=== PATIENT | male | born 1960 | race Caucasian/White ===

== ENCOUNTER 2020-09-09 13:42 | Outpatient (CLI) | payer OTHER, SELFPAY ==
[2020-09-09 14:26] LABS: Amphetamine Screen Urine Negative (Negative); Barbiturate Screen Urine Negative (Negative); Benzodiazepines Screen Urine Positive (Negative); Cannabinoid Screen Urine Negative (Negative); Cocaine Screen Urine Negative (Negative); Methadone Screen Urine Negative (Negative); Opiate Screen Urine Negative (Negative); Phencyclidine Screen Urine Negative (Negative)
== END 2020-09-09 13:43 | disposition home or self-care (01) ==
LOC: ANHLAB 13:42
PROVIDERS: PCP Internal Medicine; Visit Provider Nurse Practitioner
DX: C61 Malignant neoplasm of prostate (principal); Z13.29 Encounter for screening for other suspected endocrine disorder; Z13.220 Encounter for screening for lipoid disorders; Z51.81 Encounter for therapeutic drug level monitoring; Z79.899 Other long term (current) drug therapy
CPT/HCPCS: 80307

== ENCOUNTER 2020-11-03 08:55 | Outpatient (CLI) | payer OTHER, SELFPAY ==
--- NOTE | ~2020-11-03 | XR_ITS ---
XR lumbar spine 2-3V DATE: 11/03/2020 09:11 INDICATION: Lumbar radiculopathy TECHNIQUE: AP, lateral, coned lateral lumbosacral views COMPARISON: None FINDINGS: There is mild degenerative disease at L1-2 and L2-3, L4-5 and L5-S1. There is moderate degenerative disc disease at L3-4 with grade 1 anterolisthesis at this level due to degenerative change at the apophyseal joints which is prominent diminished lower lumbar area. No fracture or bone destruction or spondylolisthesis. The included lower thoracic and lumbar pedicles are intact. The sacroiliac joints appear normal. IMPRESSION: Mild to moderate multilevel degenerative disc disease, most prominent at L3-4 Degenerative change at the apophyseal joints in the mid and lower lumbar area with associated grade 1 anterolisthesis at L3-4 Reviewed, dictated and finalized at location A. IMPRESSION: Mild to moderate multilevel degenerative disc disease, most promine nt at L3-4 Degenerative change at the apophyseal joints in the mid and lower lumbar area w ith associated grade 1 anterolisthesis at L3-4
--- NOTE | ~2020-11-03 | XR_ITS ---
XR_CERV2-3V_CR DATE: 11/03/2020 09:11 INDICATION: Neck pain TECHNIQUE: AP, open-mouth, lateral views COMPARISON: None FINDINGS: Normal alignment of the cervical spine. C1 and C2 are normally aligned and the odontoid pro cess is intact. No fracture or dislocation or locked facet or prevertebral soft tissue swelling. There is moderately severe degenerative disc disease at C5-6 and C6-7, with prominent posterior spurr ing at each of these levels. There is degenerative change at the apophyseal joints throughout the cervical spine. Uncovertebral tera int spurring is particularly prominent at C5-6 and C6-7 bilaterally. IMPRESSION: Prominent degenerative disc disease and uncovertebral joint spurring at C5-6 and C6-7 Reviewed, dictated and finalized at Location A. Reviewed, dictated and finalized at location A. IMPRESSION: Prominent degenerative disc disease and uncovertebral joint spurrin g at C5-6 and C6-7
== END 2020-11-03 08:56 | disposition home or self-care (01) ==
LOC: ANHIMG 08:59
PROVIDERS: PCP Internal Medicine; Visit Provider Nurse Practitioner
DX: M47.813 Spondylosis without myelopathy or radiculopathy, cervicothoracic region (principal)
CPT/HCPCS: 72040; 72100

== ENCOUNTER 2020-12-02 12:00 | Outpatient (RCR) | payer OTHER, SELFPAY ==
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
--- NOTE | 2020-12-02 12:46 | PTOPEVAL ---
PHYSICAL THERAPY REEVALUATION 12-02-20 Refer to the clinical summary below for his status today, compared to the initial evaluation. The goals were partially achieved. PT is on HOLD for now. He is to call for a follow up appointment with you. If PT is to continue, please issue him a new script for PT. Thank you for referring Ray Orellana to [facility].? Please review, sign, date and return this reevaluation report CHERELLE. I agree with and certify that the following plan of care is medically necessary. Referring Physician Date Attending Provider: Theodora Veliz [employer] Document 12/02/20 12:00 GIGI (Rec: 12/02/20 12:46 GIGI [id number]) Assessment Status Re-evaluation Subjective Information Ray reports: back is about Query Text:As Reported By Patient/ the same, still have pain Family shooting down R leg; tried to vacuum yesterday and set it off again; was doing a little better before that; cannot bend down and lift anything; doing exercises at home, am getting stronger, but pain is not going away; been working on standing up straighter and walk better; getting adjustments from the chiropractor about once/week and feels that helps; is frustrated because back still hurting; want to get a job and work but cannot because of his back; Pain Assessment Timing of Pain Assessment Timing of Pain Assessment Assessment Pain Scale Pain Scale Used Numeric (1 - 10) Self Report Pain Assessment Bilateral Spine, Lumbar Reported Pain Level 8 Pain Description Aching,Dull,Shooting Radicular Pain Location R posterior thigh to above knee- dull ache ~ 50% day and move wrong shoots Pain Frequency Chronic,Continuous Lowest Pain Intensity 6 Greatest Pain Intensity 8 Pain Aggravating Factors Bending,Exercise/Activity, Lifting Other Pain Aggravating Factors bend forward, twisting back when rolling in bed Pain Behaviors Anxious,Grimacing,Guarding Pain Score Pain Score 8: Self Report Additional Pain Score Comments Oswestry self assessment functional score of 70% limitation in activity reported tolerances: sitting
--- NOTE | 2020-12-27 16:11 | PCPTNOTE ---
PHYSICAL THERAPY DISCHARGE 12-27-20 Attending Provider: Theodora Veliz NP Patient:Ray Orellana Date of :1960 Mr. Orellana has not returned for any further treatments since the reevaluation on 12/02/2020, therefore he will be discharged at this time. Refer to that report for his status at the last session. Thank you for referring this patient to [facility]. Please review, sign, date and return this discharge summary CHERELLE. I have been updated about the patient's current status and I agree with discharge from the above service at this time. Referring Physician Date
== END 2020-12-28 08:48 | disposition home or self-care (01) ==
LOC: ANHPT 12:00
PROVIDERS: PCP Internal Medicine; Visit Provider Nurse Practitioner
DX: M54.16 Radiculopathy, lumbar region (principal); M54.2 Cervicalgia
CPT/HCPCS: 97014; 97110; 97140; 97161; G0283

== ENCOUNTER 2020-12-17 11:03 | Outpatient (CLI) | payer OTHER, SELFPAY ==
--- NOTE | ~2020-12-17 | MR_ITS ---
EXAMINATION: MR shoulder RT wo con DATE: 12/17/2020 11:51 INDICATION: Right shoulder pain TECHNIQUE: Magnetic resonance imaging (MRI) of the right shoulder was performed without intravenous c ontrast. Sequences included axial PD-weighted FS FSE, coronal oblique PD-weighted FS FSE, coronal obl ique T2-weighted FS FSE, sagittal PD-weighted FS FSE, and sagittal T1-weighted SE. COMPARISON: Right shoulder radiographs dated 09/29/2020 FINDINGS: Coracoacromial arch: The acromion undersurface is flat in morphology (type I). The coracoacromial ligament is normal. Mode rate acromioclavicular osteoarthritis with mild subarticular edema at both sides of the joint space. Rotator cuff: Moderate supraspinatus tendinopathy without discrete tear. The infraspinatus, teres minor and subscap ularis tendons are normal. Normal rotator cuff muscle bulk and signal. Biceps tendon, glenoid labrum and glenohumeral cartilage: Long head of the biceps tendon is normal. Normal anterosuperior sublingual foramen and superior subli ngual sulcus. Labrum is otherwise normal with no discrete tear. Glenohumeral cartilage is normal. Fluid: Physiologic amount of fluid in the glenohumeral joint and biceps tendon sheath. No loose osteochondra l bodies. Small amount of fluid in the subacromial/subdeltoid bursa consistent with mild bursitis. Bones: Bone alignment is normal. No fracture or pathologic marrow replacing process. IMPRESSION: 1. Moderate supraspinatus tendinopathy without discrete tear. 2. Moderate acromioclavicular osteoarthritis. 3. Mild subacromial/subdeltoid bursitis. Reviewed, dictated and finalized at location A.
== END 2020-12-17 11:04 | disposition home or self-care (01) ==
LOC: ANHIMG 11:07
PROVIDERS: PCP Internal Medicine; Visit Provider Orthopaedic Surgery
DX: M25.511 Pain in right shoulder (principal); G89.29 Other chronic pain; M75.81 Other shoulder lesions, right shoulder; M19.011 Primary osteoarthritis, right shoulder; M75.51 Bursitis of right shoulder
CPT/HCPCS: 73221

== ENCOUNTER 2020-12-22 10:33 | Outpatient (CLI) | payer OTHER, SELFPAY ==
--- NOTE | ~2020-12-22 | MR_ITS ---
EXAMINATION: MR lumbar spine wo [facility] EXAM DATE: 12/22/2020 11:20 INDICATION: M54.16 - Radiculopathy, lumbar region. TECHNIQUE: Multi-sequential, multiplanar MR images of the lumbar spine were obtained without contrast . Sagittal T1, T2, T2 fat saturation images. Axial T2 weighted images. There is no prior study for comparison. FINDINGS: Mild diffuse lumbar disc disease. The conus medullaris terminates at the T12-L1 level and h as normal signal intensity and morphology. There is 2 mm anterolisthesis L3 on L4. The vertebral bod ies are otherwise aligned. There are no suspicious marrow signal abnormalities. Paraspinal soft tissu e is unremarkable. Level by level evaluation: T12-L1: Disc does not extend beyond the endplate margin. Facet arthropathy: Mild. Neural foraminal stenosis: No stenosis. Central canal stenosis: No stenosis. L1-L2: There is a mild to moderate diffuse disc bulge. Facet arthropathy: Mild to moderate. Neural foraminal stenosis: Mild bilateral. Central canal stenosis: Mild. L2-L3: There is a mild to moderate diffuse disc bulge. Facet arthropathy: Mild to moderate. Neural foraminal stenosis: Mild right. Central canal stenosis: Mild to moderate. L3-L4: There is a moderate diffuse disc bulge. Facet arthropathy: Moderate . Ligamentum flavum enlargement. Neural foraminal stenosis: Mild to moderate right, mild left. Central canal stenosis: Moderate. L4-L5: There is a mild to moderate diffuse disc bulge. Facet arthropathy: Mild to moderate. Neural foraminal stenosis: Mild to moderate bilateral. Central canal stenosis: Mild. L5-S1: Disc does not extend beyond the endplate margin. Facet arthropathy: Mild. Neural foraminal stenosis: No stenosis. Central canal stenosis: No stenosis. IMPRESSION: 1. L3-4 grade 1 anterolisthesis, moderate central canal stenosis. 2. Less spondylosis other levels. Reviewed, dictated and finalized at location A.
== END 2020-12-22 10:34 | disposition home or self-care (01) ==
PROVIDERS: PCP Internal Medicine; Visit Provider Nurse Practitioner
DX: M54.16 Radiculopathy, lumbar region (principal); M43.16 Spondylolisthesis, lumbar region
CPT/HCPCS: 72148

== ENCOUNTER 2021-03-01 09:04 | Outpatient (CLI) | payer OTHER, SELFPAY ==
[2021-03-01 09:38] LABS: Basophils Percent Auto 0.4 % (0.2-1.2); Eosinophils Absolute Auto 0.1 K/mm3 (0-0.3); Eosinophils Percent Auto 2.3 % (0-4.4); Hematocrit 44.6 % (42.0-52.0); Hemoglobin 14.9 g/dL (14.0-18.0); Immature Granulocyte Absolute 0.02 K/mm3 (0.00-0.031); Immature Granulocyte Percent A 0.4 % (0-0.5); Lymphocytes Absolute Auto 2.02 K/mm3 (0.9-3.2); Lymphocytes Percent Auto 38.1 % (18.3-44.2); Mean Corpuscular HGB Conc 33.4 g/dl (32-36); Mean Corpuscular Volume 92.9 fl (80-100); Mean Platelet Volume 8.9 fl (7.4-10.4); Monocytes Absolute Auto 0.6 K/mm3 (0.1-0.6); Monocytes Percent Auto 11.3 % (2.6-8.5); Neutrophils Absolute Auto 2.5 K/mm3 (1.3-6.7); Neutrophils Percent Auto 47.5 % (45.5-73.1); Platelet Count Result 274 k/mm3 (150-375); Red Cell Distribution Width 12.4 % (11.5-14.5); White Blood Count 5.3 K/mm3 (4.5-10.0)
[2021-03-01 09:55] LABS: Alanine Aminotransferase 21 U/L (4-50); Albumin Level 4.5 g/dL (3.5-5.1); Alkaline Phosphatase 64 U/L (38-126); Anion Gap 6 mmol/L (8-16); Aspartate Amino Transferase 26 U/L (17-59); Bilirubin,Total 0.6 mg/dL (0.2-1.3); Blood Urea Nitrogen 14 mg/dL (9-20); Calcium 9.2 mg/dL (8.4-10.2); Carbon Dioxide 30 mmol/L (22-30); Chloride 99 mmol/L (98-107); Cholesterol 272 mg/dL (0-200); Estimated Glomerular Filt Rate > 60; Glucose 105 mg/dL (65-110); HDL Direct 67 mg/dL; Potassium 4.6 mmol/L (3.4-5.0); Sodium 135 mmol/L (137-145); Triglycerides 105 mg/dL (<150)
[2021-03-01 10:07] LABS: LDL Cholesterol Direct 155 mg/dL
[2021-03-01 10:21] LABS: Prostate Specific Antigen < 0.1 ng/mL (< OR = 4.0)
== END 2021-03-01 09:05 | disposition home or self-care (01) ==
LOC: ANHLAB 09:06
PROVIDERS: PCP Internal Medicine; Visit Provider Nurse Practitioner
DX: C61 Malignant neoplasm of prostate (principal); Z13.29 Encounter for screening for other suspected endocrine disorder; Z13.220 Encounter for screening for lipoid disorders
CPT/HCPCS: 36415; 80053; 80061; 84153; 85025; G0103

== ENCOUNTER 2021-03-16 22:36 | Emergency (ER) | payer OTHER, SELFPAY ==
[2021-03-16 22:38] VITALS: BP 142/87; PULSE 63; RESP 16; TEMP 36.3; O2SAT 99
== END 2021-03-17 04:34 | disposition left against medical advice (07) ==
LOC: ANHED 03-17 00:31
PROVIDERS: PCP Internal Medicine
DX: R07.81 Pleurodynia (principal)
CPT/HCPCS: 99199

== ENCOUNTER 2021-06-20 12:30 | Outpatient (RCR) | payer OTHER, SELFPAY ==
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
== END 2021-06-20 15:55 | disposition home or self-care (01) ==
LOC: ANHPT 12:30
PROVIDERS: PCP Internal Medicine; Referring Provider Internal Medicine; Visit Provider Internal Medicine
DX: R07.81 Pleurodynia (principal); V89.2XXD Person injured in unspecified motor-vehicle accident, traffic, subsequent encounter
CPT/HCPCS: 97110; 97112; 97140; 97162

== ENCOUNTER 2021-07-18 11:00 | Outpatient (RCR) | payer OTHER, SELFPAY ==
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
--- NOTE | 2021-07-15 12:39 | PCPTNOTE ---
Patient called & cancelled scheduled appointment this date due to feeling better today, will return for re-eval.
--- NOTE | 2021-07-18 11:23 | PTOPEVAL ---
PHYSICAL THERAPY DISCHARGE 07-18-21 Refer to the clinical summary below, for his status today, compared to the initial evaluation. The goals have been achieved. Discharge PT services at this time. Thank you for referring Ray Orellana to [facility].? Please review, sign, date and return this Discharge report CHERELLE. I agree with and certify that the following plan of care is medically necessary. Referring Physician Date Attending Provider: Israel Lund, Subjective Information Ray reports: has not had any Query Text:As Reported By Patient/ dizziness for the past 1 & 1/2 Family weeks; have returned to doing his usual activities at home; has plans to fly next week to visit his mom in [place]; Standardized Tests Dizziness Handicap Inventory Standardized Test Scores (Number 0-100) 0 Vestibular Testing Smooth Pursuits Normal Gaze Stabilization with Fixation WNL Gaze Stabilization without Fixation WNL [place]-Hallpike Left WNL Antony-Hallpike Right WNL Horizontal Roll Test in Supine Left WNL Horizontal Roll Test in Supine Right WNL Vestibular Testing Comments performed all without any vestibular s/s: standing 360' turn to R and L, 1x; supine/sit/stand transfer ; bend forward to greens picker item off floor, walk 50' with head motions R/L and up/down 4 reps each; - balance standing on foam: 30 seconds: static with eyes open and eyes closed; march in place eyes open and closed; tandem stand lead R and Lead L reviewed Murali Bose for self maneuver for canal clearance; ----- pt did not have any questions and agreed to discharge from PT services PT Clinical Summary Ray has received 6 PT sessions, for the diagnosis of dizziness, BPPV. With the reevaluation, he no longer has any vestibular s/s with activities and balance tasks. He has returned to doing all home tasks. The goals were achieved.
== END 2021-07-19 09:40 | disposition home or self-care (01) ==
LOC: ANHPT 11:00
PROVIDERS: PCP Internal Medicine; Referring Provider Internal Medicine; Visit Provider Internal Medicine
DX: H81.10 Benign paroxysmal vertigo, unspecified ear (principal)
CPT/HCPCS: 97112; 97161; 97530

== ENCOUNTER 2021-08-31 09:02 | Outpatient (CLI) | payer OTHER, SELFPAY ==
[2021-08-31 09:58] LABS: Anion Gap 4 mmol/L (8-16); Blood Urea Nitrogen 12 mg/dL (9-20); Calcium 8.9 mg/dL (8.4-10.2); Carbon Dioxide 31 mmol/L (22-30); Chloride 105 mmol/L (98-107); Cholesterol 255 mg/dL (0-200); Estimated Glomerular Filt Rate > 60; Glucose 103 mg/dL (65-110); HDL Direct 63 mg/dL; Potassium 4.5 mmol/L (3.4-5.0); Sodium 140 mmol/L (137-145); Triglycerides 77 mg/dL (<150)
[2021-08-31 10:08] LABS: LDL Cholesterol Direct 138 mg/dL
== END 2021-08-31 09:03 | disposition home or self-care (01) ==
LOC: ANHLAB 09:05
PROVIDERS: PCP Internal Medicine; Visit Provider Nurse Practitioner
DX: Z51.81 Encounter for therapeutic drug level monitoring (principal); Z79.899 Other long term (current) drug therapy; E78.5 Hyperlipidemia, unspecified
CPT/HCPCS: 36415; 80048; 80061

== ENCOUNTER 2022-03-06 10:30 | Outpatient (RCR) | payer OTHER, SELFPAY ==
--- NOTE | 2022-02-07 16:33 | PTOPEVAL1 ---
Assessment and note entered by Jarrod Garduno, PT Evaluation Information Assessment Status Evaluation Diagnosis BPPV Onset 02/03/22 Subjective Information Patient reports this spring he had real bad vertigo which he came to this therapy clinic for and [place] and were able to fix him up. On SundayFebruary 03 he was getting out of bed to go to the bathroom and started to feel the vertigo again. He attempted to do a self Susu maneuver, but it made him so nauseous he had to vomit. Reported Pain Level Pain Score 0: Self Report Assessment PT Clinical Summary Ray came into the clinic today with complaints of vertigo. He reports that although he is dizzy he is still able to do most functional activity, besides lying flat on a bed needing pillows to prop him up. Physical therapist was unable to produce Nystagmus with different tests or positions including Antony Hallpike to both sides. Did have slight symptoms going to the R side. Physical therapy should be able to help patient with Susu maneuvers along with habituation exercises if needed. Plan of Care Interventions Manual Therapy,Patient/Caregiver Education, Therapeutic Activities,Therapeutic Exercise,Other Other Interventions vestibular rehab PT Services Indicated Yes Treatment Frequency and 2x/wk for 4 weeks Duration These treatments will address the objective and functional deficits as defined above. The patient will be advanced safely and appropriately in order for the patient to progress towards his/her prior level of function. Additional exercises will be introduced and as well as a comprehensive home exercise program upon discharge, if needed, ?to ensure carryover of functional gains achieved in the clinic. This treatment plan has been reviewed and agreement upon by the patient.
--- NOTE | 2022-02-14 10:07 | PCPTNOTE ---
Patient called & cancelled scheduled appointment this date due to not having any vestibular issues.
--- NOTE | 2022-03-03 11:24 | PCPTNOTE ---
Patient called & cancelled scheduled appointment this date, per patient's request
--- NOTE | 2022-03-13 09:10 | PCPTNOTE ---
Patient called & cancelled scheduled appointment this date due to no vestibular symptoms. Has re-eval in 2 weeks, can call in to try and squeeze another appointment in if symptoms return.
--- NOTE | 2022-04-18 12:58 | PCPTNOTE ---
Admitting Provider: Attending Provider: Israel Lund DO Patient:Ray Orellana Date of :1960 Patient has not returned for any further treatments since 03/06/2022, therefore (he/she) will be discharged at this time. Patient?s initial visit was on 02/07/2022 12:30 and (he/she) had a total of ____3____ visits. The goals have been met. Thank you for referring this patient to [facility]. Please review, sign, date and return this discharge summary CHERELLE. I have been updated about the patient's current status and I agree with discharge from the above service at this time. Referring Physician Date
== END 2022-05-08 23:59 | disposition home or self-care (01) ==
LOC: ANHPT 10:30
PROVIDERS: PCP Internal Medicine; Visit Provider Internal Medicine
DX: H81.10 Benign paroxysmal vertigo, unspecified ear (principal)
CPT/HCPCS: 97110; 97140; 97161

== ENCOUNTER 2022-05-09 08:25 | Outpatient (RCR) | payer OTHER, SELFPAY ==
--- NOTE | 2022-05-09 15:00 | PTOPDC ---
Assessment and note entered by Jarrod Garduno, PT Evaluation Information Assessment Status Discharge Diagnosis BPPV Onset 02/03/22 Subjective Information Patient reports no symptoms of vertigo and feels good. Is okay with discharge knowing his exercises and if things get bad he can get a new script for more physical therapy. Reported Pain Level Pain Score 0: Self Report Assessment PT Clinical Summary Patient discharged from skilled physical therapy not currently having any S/S of BPPV. Plan of Care PT Services Indicated No Treatment Frequency and discharge from skilled physical therapy. Duration
== END 2022-05-09 16:17 | disposition home or self-care (01) ==
LOC: ANHPT 08:25
PROVIDERS: PCP Internal Medicine; Visit Provider Internal Medicine
DX: H81.10 Benign paroxysmal vertigo, unspecified ear (principal)
CPT/HCPCS: 99199

== ENCOUNTER 2022-05-10 09:49 | Outpatient (CLI) | payer OTHER, SELFPAY ==
[2022-05-10 19:58] LABS: Basophils Percent Auto 0.6 % (0.2-1.2); Eosinophils Absolute Auto 0.1 K/mm3 (0-0.3); Eosinophils Percent Auto 1.8 % (0-4.4); Hematocrit 45.5 % (42.0-52.0); Hemoglobin 15.2 g/dL (14.0-18.0); Immature Granulocyte Absolute 0.01 K/mm3 (0.00-0.031); Immature Granulocyte Percent A 0.2 % (0-0.5); Lymphocytes Absolute Auto 1.67 K/mm3 (0.9-3.2); Lymphocytes Percent Auto 33.7 % (18.3-44.2); Mean Corpuscular HGB Conc 33.4 g/dl (32-36); Mean Corpuscular Hemoglobin 30.6 pg (26-34); Mean Corpuscular Volume 91.7 fl (80-100); Mean Platelet Volume 9.2 fl (7.4-10.4); Monocytes Absolute Auto 0.5 K/mm3 (0.1-0.6); Monocytes Percent Auto 10.7 % (2.6-8.5); Neutrophils Absolute Auto 2.6 K/mm3 (1.3-6.7); Platelet Count Result 270 k/mm3 (150-375); Red Blood Count 4.96 M/mm3 (4.6-6.20); Red Cell Distribution Width 12.6 % (11.5-14.5)
[2022-05-10 21:21] LABS: Alanine Aminotransferase 23 U/L (6-50); Albumin Level 4.5 g/dL (3.5-5.1); Alkaline Phosphatase 72 U/L (38-126); Anion Gap 6 mmol/L (8-16); Aspartate Amino Transferase 27 U/L (17-59); Bilirubin,Total 0.8 mg/dL (0.2-1.3); Blood Urea Nitrogen 18 mg/dL (9-20); Carbon Dioxide 31 mmol/L (22-30); Chloride 102 mmol/L (98-107); Cholesterol 278 mg/dL (0-200); Estimated Glomerular Filt Rate > 60; Glucose 97 mg/dL (65-110); HDL Direct 64 mg/dL; Potassium 4.3 mmol/L (3.4-5.0); Sodium 139 mmol/L (137-145); Triglycerides 58 mg/dL (<150)
[2022-05-10 21:33] LABS: LDL Cholesterol Direct 148 mg/dL
[2022-05-10 21:49] LABS: Prostate Specific Antigen < 0.1 ng/mL (< OR = 4.0)
== END 2022-05-10 09:50 | disposition home or self-care (01) ==
LOC: ANHGOSHLAB 09:50
PROVIDERS: PCP Internal Medicine; Visit Provider Nurse Practitioner
DX: Z13.29 Encounter for screening for other suspected endocrine disorder (principal); Z13.220 Encounter for screening for lipoid disorders; C61 Malignant neoplasm of prostate
CPT/HCPCS: 36415; 80053; 80061; 84153; 85025

== ENCOUNTER 2022-05-30 10:36 | Outpatient (CLI) | payer OTHER, SELFPAY ==
--- NOTE | 2022-05-30 10:37 | EST_ITS ---
Patient Info Name: Ray Orellana Age: 61 years : 1960 Gender: Male Ht: 71 in Wt: 170 lbs BSA: 1.97 m2 HR: 54 bpm BP: 116 / 76 mmHg Heart Rhythm: Sinus Rhythm Exam Date: 05/30/2022 10:49 AM Exam Location: [facility] Stress Patient Status: Outpatient Admit Date: 05/30/2022 Staff Ordering Physician: Theodora Veliz NP Attending Provider: Theodora Veliz NP Exercise Technologist: Barb Forbes CT Exercise Physician: Andi Lu DO Exam Type: CA stress test treadmill Study Info Indications R06.09 - Other forms of dyspnea A treadmill exercise stress test was performed. Summary 1. 1. Abnormal Marco exercise stress test for ischemic ST changes by ECG criteria. 2. 2. Good functional capacity, achieving 10 METs of workload. 3. 3. Appropriate HR response to exercise. 4. 4. Appropriate HR recovery at 1 minute post exercise. 5. 5. No imaging with stress testing. 6. 6. Patient informed of the above results. Protocol: Marco Stress ECG Details Stage: REST Duration (min): 1 min : 9 sec Speed (mph): 0.0 Grade (%): 0 HR (bpm): 61 SBP (mmHg): 116 DBP (mmHg): 76 METS: --- Stage: REST Duration (min): 5 min : 52 sec Speed (mph): 0.0 Grade (%): 0 HR (bpm): 61 SBP (mmHg): 116 DBP (mmHg): 76 METS: --- Stage: STAGE 1 Duration (min): 1 min : 0 sec Speed (mph): 1.7 Grade (%): 10 HR (bpm): 90 SBP (mmHg): 116 DBP (mmHg): 76 METS: --- Stage: STAGE 1 Duration (min): 2 min : 0 sec Speed (mph): 1.7 Grade (%): 10 HR (bpm): 97 SBP (mmHg): 116 DBP (mmHg): 76 METS: --- Stage: STAGE 1 Duration (min): 3 min : 0 sec Speed (mph): 1.7 Grade (%): 10 HR (bpm): 104 SBP (mmHg): 141 DBP (mmHg): 80 METS: --- Stage: STAGE 2 Duration (min): 1 min : 0 sec Speed (mph): 2.5 Grade (%): 12 HR (bpm): 112 SBP (mmHg): 141 DBP (mmHg): 80 METS: --- Stage: STAGE 2 Duration (min): 2 min : 0 sec Speed (mph): 2.5 Grade (%): 12 HR (bpm): 111 SBP (mmHg): 148 DBP (mmHg): 82 METS: --- Stage: STAGE 2 Duration (min): 3 min : 0 sec Speed (mph): 2.5 Grade (%): 12 HR (bpm): 115 SBP (mmHg): 148 DBP (mmHg): 82 METS: --- Stage: STAGE 3 Duration (min): 1 min : 0 sec Speed (mph): 3.4 Grade (%): 14 HR (bpm): 130 SBP (mmHg): 144 DBP (mmHg): 88 METS: --- Stage: STAGE 3 Duration (min): 2 min : 0 sec Speed (mph): 3.4 Grade (%): 14 HR (bpm): 135 SBP (mmHg): 144 DBP (mmHg): 88 METS: --- Stage: STAGE 3 Duration (min): 3 min : 0 sec Speed (mph): 3.4 Grade (%): 14 HR (bpm): 136 SBP (mmHg): 176 DBP (mmHg): 87 METS: --- Stage: STAGE 4 Duration (min): 0 min : 17 sec Speed (mph): 4.2 Grade (%): 16 HR (bpm): 141 SBP (mmHg): 176 DBP (mmHg): 87 METS: ---
== END 2022-05-30 10:37 | disposition home or self-care (01) ==
LOC: ANHCARD 10:37
PROVIDERS: PCP Internal Medicine; Visit Provider Nurse Practitioner
DX: R06.09 Other forms of dyspnea (principal)
CPT/HCPCS: 93017

== ENCOUNTER 2022-06-08 00:42 | Day surgery (SDC) | payer OTHER, SELFPAY ==
[2022-06-07 11:03] VITALS: BMI 23.7
[2022-06-08] VITALS (10 sets, daily range): BP systolic 105–132; BP diastolic 69–88; PULSE 50–59; RESP 12–17; TEMP 36.6–36.8; O2SAT 95–100; BMI 23.1
[2022-06-08 08:53] LABS: Basophils Percent Auto 0.2 % (0.2-1.2); Eosinophils Absolute Auto 0.1 K/mm3 (0-0.3); Eosinophils Percent Auto 2.8 % (0-4.4); Immature Granulocyte Absolute 0.01 K/mm3 (0.00-0.031); Immature Granulocyte Percent A 0.2 % (0-0.5); Lymphocytes Absolute Auto 1.74 K/mm3 (0.9-3.2); Lymphocytes Percent Auto 35.2 % (18.3-44.2); Mean Corpuscular HGB Conc 34.1 g/dl (32-36); Mean Corpuscular Hemoglobin 29.9 pg (26-34); Mean Corpuscular Volume 87.8 fl (80-100); Mean Platelet Volume 9.1 fl (7.4-10.4); Monocytes Absolute Auto 0.6 K/mm3 (0.1-0.6); Monocytes Percent Auto 11.1 % (2.6-8.5); Neutrophils Absolute Auto 2.5 K/mm3 (1.3-6.7); Neutrophils Percent Auto 50.5 % (45.5-73.1); Platelet Count Result 238 k/mm3 (150-375); Red Blood Count 5.01 M/mm3 (4.6-6.20); Red Cell Distribution Width 12.6 % (11.5-14.5); White Blood Count 4.9 K/mm3 (4.5-10.0)
[2022-06-08 09:04] LABS: Anion Gap 6 mmol/L (8-16); Blood Urea Nitrogen 20 mg/dL (9-20); Calcium 8.7 mg/dL (8.4-10.2); Carbon Dioxide 29 mmol/L (22-30); Chloride 104 mmol/L (98-107); Estimated CRCL calculation 72 ml/min; Estimated Glomerular Filt Rate > 60; Glucose 111 mg/dL (65-110); Potassium 3.6 mmol/L (3.4-5.0); Sodium 139 mmol/L (137-145)
--- NOTE | 2022-06-08 09:55 | WPDHPUPDATE1 ---
History and Physical Update Update Date/Time: 06/08/22 09:55 History and Physical has been reviewed, including an updated exam of the patient. There are NO changes in the patient's condition. Risks, benefits, and alternatives have been discussed and questions answered. Patient agrees to proceed with procedure.
--- NOTE | 2022-06-08 09:55 | WPDMODSED ---
Moderate Sedation Note-Pt Data Patient Data Diagnosis: Abnormal stress test Present Complaint: Abnormal stress test Procedure to be performed/Plan: Coronary angiography, LHC, +/- PCI Allergies Allergy/AdvReac Type Severity Reaction Status Date / Time cat dander Allergy Unknown Sneezing Verified 06/08/22 08:41 surgical glue Allergy Mild Rash Uncoded 06/08/22 08:41 Home Medications Medication Instructions Recorded Confirmed Type acetaminophen 500 mg tablet 1,000 mg PO DAILY PRN Pain 09/16/21 06/08/22 History (Tylenol Extra Strength) ibuprofen 200 mg tablet 600 mg PO DAILY PRN Pain 09/16/21 06/08/22 History naproxen sodium 220 mg capsule 440 mg PO DAILY PRN Pain 09/16/21 06/08/22 History (Aleve) diazepam 10 mg tablet 10 mg PO QHS PRN sleep #30 tabs 05/02/22 06/07/22 Rx atorvastatin 10 mg tablet 10 mg PO QHS #90 tabs 05/16/22 06/08/22 Rx aspirin 81 mg tablet,delayed 81 mg PO DAILY 05/30/22 06/08/22 History release sildenafil 100 mg tablet (Viagra) 100 mg PO DAILY PRN Erectile 06/07/22 06/08/22 History Dysfunction Current Medications: Active Medications Sodium Chloride (Normal Saline Iv) 500 mls @ 100 mls/hr IV CONT .Q5H HAYDEE Sedation/Anesthesia: No previous sedation/anesthesia problems (including family history). [facility] Past Medical History Medical History Arthritis Arthritis of right acromioclavicular joint Claustrophobia Erectile dysfunction Hyperlipidemia Insomnia Prostate cancer Spinal stenosis Subacromial impingement of left shoulder Subacromial impingement of right shoulder Tourette's Surgical History Surgical History H/O prostatectomy November 2010 History of hernia surgery Right inguinal hernia repair 1985 Left inguinal hernia repair 2013 Family History Family History Father Family history of Parkinson's disease Dementia Mother Lung cancer Social History Social History Social History: caffeine- soda 1-2 daily Smoking status: Never smoker Second hand tobacco smoke exposure: Yes (as a child- mother smoked) Alcohol intake: current Drinks per week: 7 Alcohol use details: beer. Substance use: never Substance use type: prescription drug Lack of Transportation: No Lack of Food: Never True Current Housing: I Have Housing Concerned About Future Housing: No Difficulty Paying Gas/Electric Bills: No Difficulty Paying for Meds: No Currently Unemployed: No Education: Master's Degree or Higher Difficulty w/ Childcare or Family Care: No Living arrangements: with family Gender identity (if verbalized by the patient): Male Spiritual care concerns: No Mod Sed Physical Exam Physical Exam Pre Procedural Exam: Normal: Appearance, Lungs, Heart Rate, Heart Rhythm, Neuro Exam, Abdomen, Extremities and Skin Hours since solid foods: 12 Hours since liquid intake: 8 Mallampati Classification: class II Internal Medicine - PN: Obj Da Vital Signs Vital Signs: Vital Signs - 24 hr 06/08/22 08:48 Temperature 36.8 C Respiratory Rate 12 Blood Pressure 132/78 Pulse Oximetry 100 Oxygen Delivery Room Air Meds/Results Medications: Active Medications Generic Name Dose Route Start Last Admin Trade Name Freq PRN Reason Stop Dose Admin Sodium Chloride 500 mls @ 100 mls/hr 06/08/22 08:30 Normal Saline Iv IV CONT .Q5H HAYDEE Labs 06/08/22 08:45 06/08/22 08:45 Labs: Laboratory Results - last 24 hr 06/08/22 06/08/22 08:45 08:45 WBC 4.9 RBC 5.01 Hgb 15.0 Hct 44.0 MCV 87.8 MCH 29.9 MCHC 34.1 RDW 12.6 Plt Count 238 MPV 9.1 Immature Gran % (Auto) 0.2 Neut % (Auto) 50.5 Lymph % (Auto) 35.2 [place] % (Auto) 11.1 H Eos % (Auto) 2.8 Baso % (Auto) 0.2 Lymph
--- NOTE | 2022-06-08 09:56 | WPDCARDPROC ---
Cardiac Cath Procedure Note Date of procedure:: 06/08/22 Performing physician:: CATHETERIZATION LABORATORY REPORT Procedure Date: 06/08/2022 Wax Pattern Assembler: Mary Swanson M.D., [facility]? Referring Physician: Dr. Lu ? Anesthesia: Versed and Fentanyl were ordered and given in my presence at 10:04, procedure ended at 10:52. Supervision of nurse monitored moderate sedation with Versed and Fentanyl was provided for 48 minutes. Total of Versed 4mg and Fentanyl 150mcg were administered by the Outsole Paraffiner RN Marcia Serrano. Pre-op Diagnosis: Coronary artery disease Post-op Diagnosis: Angiographically normal coronary arteries. Left ventricular end-diastolic pressure of 16mmHg Procedure(s): 1. Moderate sedation 2. Attempted right radial artery access under ultrasound guidance 3. Ultrasound guided access of the right common femoral artery 4. Coronary angiography 5. Left heart cath 6. Angioseal closure of the right common femoral artery Access Site: Right common femoral artery (unable to cannulate the right radial artery) Brief History and Clinical Indications: Patient is a 61-year-old male who is referred for [facility] for abnormal stress test. All risks, benefits and alternatives to left heart catheterization with or without percutaneous coronary intervention was discussed at length with the patient. Risk of complications including but not limited to bleeding, infection, arrhythmia, stroke, worsening kidney function, blood loss, groin hematoma, limb loss, emergency coronary artery bypass grafting, and even were discussed with the patient and all questions were answered. The patient understood and wished to proceed. Time out called, patient name, date of , medical record number, allergies, procedure performed, identify Wax Pattern Assembler, patient and staff member concurred with accurate data, procedure carried on. Findings: LEFT HEART CATHETERIZATION FINDINGS: 1. Left main: The left main coronary artery is widely patent without any significant obstructive disease. 2. Left anterior descending: The LAD and the diagonal branches have mild luminal irregularities without any significant obstructive angiographic disease. 3. Left circumflex: The left circumflex artery and the main marginal branches have mild luminal irregularities without any significant obstructive angiographic disease. 4. Right coronary artery: The RCA has mild luminal irregularities without any significant obstructive angiographic disease. The RCA is the dominant vessel. 5. Left ventricle: A. End-diastolic pressure 16mmHg. B. LV gram deferred. C. No significant gradient across aortic valve on catheter pullback. Description of Procedure: Informed consent signed and placed in the chart. Patient transferred to labor economist room. Prepped and draped in usual sterile fashion. 2% lidocaine injected subcutaneously in right wrist area. 22-gauge venipuncture catheter used to access the right radial artery with the Seldinger technique. Access of the right radial artery was obtained with the access needle, however, unable to advance wire into the radial artery despite multiple attempts and re-stick. Decision made to switch to femoral access. 2% lidocaine in right groin area. Micropuncture needle used to access right common femoral artery with Seldinger technique under fluoroscopic guidance. J wire advanced, micropuncture cannula placed. Right iliofemoral angiogram performed, access confirmed and micropuncture cannula exchanged for 5-FR sheath. 5F FL 4 diagnostic catheter engaged Left Main Coronary Artery. 5F FR 4 diagnostic catheter engaged Right Coronary Artery. Multiple orthogonal angiogram obtained and reviewed 5F Pigtail diagnostic catheter crossed aortic valve to obtain LVEDP, LV angiogram deferred. Hemostasis was achieved by 6F Angioseal. ? Assessment: Angiographically normal coronary arteries. Left ventricular end-diastolic pressure of 16mmHg Post Operative Conditi
== END 2022-06-08 13:55 | disposition home or self-care (01) ==
PROVIDERS: PCP Internal Medicine; Visit Provider Internal Medicine
PROC: 4A023N7 Measurement of Cardiac Sampling and Pressure, Left Heart, Percutaneous Approach (ICD-10-PCS; CPT 93452; principal; 2022-06-08 10:00)
DX: R94.39 Abnormal result of other cardiovascular function study (principal); E78.5 Hyperlipidemia, unspecified; Z85.46 Personal history of malignant neoplasm of prostate; Z79.82 Long term (current) use of aspirin
CPT/HCPCS: 36415; 80048; 85025; 93458; A9270; C1760; C1887; C1894; G0269; J1644; J2250; J3010; J7040

== ENCOUNTER 2022-07-11 09:28 | Outpatient (CLI) | payer OTHER, SELFPAY ==
[2022-07-11 09:56] LABS: Alanine Aminotransferase 34 U/L (6-50); Albumin Level 4.5 g/dL (3.5-5.1); Alkaline Phosphatase 76 U/L (38-126); Anion Gap 5 mmol/L (8-16); Aspartate Amino Transferase 32 U/L (17-59); Bilirubin,Total 0.8 mg/dL (0.2-1.3); Blood Urea Nitrogen 13 mg/dL (9-20); Calcium 8.7 mg/dL (8.4-10.2); Carbon Dioxide 32 mmol/L (22-30); Chloride 101 mmol/L (98-107); Cholesterol 186 mg/dL (0-200); Estimated Glomerular Filt Rate > 60; Glucose 101 mg/dL (65-110); HDL Direct 62 mg/dL; Potassium 4.1 mmol/L (3.4-5.0); Sodium 138 mmol/L (137-145); Triglycerides 71 mg/dL (<150)
[2022-07-11 10:07] LABS: LDL Cholesterol Direct 93 mg/dL
== END 2022-07-11 09:29 | disposition home or self-care (01) ==
LOC: ANHLAB 09:30
PROVIDERS: PCP Internal Medicine; Visit Provider Internal Medicine Cardiovascular Disease
DX: E78.2 Mixed hyperlipidemia (principal)
CPT/HCPCS: 36415; 80053; 80061

== ENCOUNTER 2022-08-03 16:35 | Outpatient (CLI) | payer OTHER, SELFPAY ==
--- NOTE | ~2022-08-03 | MR_ITS ---
EXAMINATION: MR shoulder LT wo con DATE: 08/03/2022 17:12 INDICATION: Impingement syndrome of left shoulder. Left shoulder pain. TECHNIQUE: Magnetic resonance imaging (MRI) of the left shoulder was performed without intravenous co ntrast. Sequences included axial PD-weighted FS FSE, coronal oblique PD-weighted FS FSE and T2-weight ed FS FSE, and sagittal oblique T2-weighted FS FSE and T1-weighted FSE. COMPARISON: Left shoulder radiographs 04/26/2022 FINDINGS: Coracoacromial arch: The acromion undersurface is flat in morphology (type I). There are likely changes of distal clavicle resection. There is mild subacromial/subdeltoid bursitis. Rotator cuff: There is an interstitial tear of the conjoined portion of supraspinatus and infraspinatus tendons tavo suring 13 mm anterior to posterior by 8 mm proximal to distal by 30% tendon thickness. Teres minor te ndon is normal. There is mild subscapularis tendinopathy. There is no asymmetric fatty atrophy of the rotator cuff muscle bellies. Biceps tendon and glenoid labrum: Biceps tendon is in bicipital groove. Intra-articular biceps tendon is normal. There is a degenerativ e tear of posterior superior glenoid labrum. Fluid: There is no glenohumeral joint effusion. Bones/cartilage: There is partial-thickness cartilage loss of posterior superior glenoid. There is cartilage surface i rregularity of humeral head. IMPRESSION: 1. Partial-thickness rotator cuff tear. 2. Mild glenohumeral joint chondrosis. 3. Mild subacromial/subdeltoid bursitis. Reviewed, dictated and finalized at location E.
== END 2022-08-03 16:36 | disposition home or self-care (01) ==
PROVIDERS: PCP Internal Medicine; Visit Provider Orthopaedic Surgery
DX: M75.42 Impingement syndrome of left shoulder (principal); M75.102 Unspecified rotator cuff tear or rupture of left shoulder, not specified as traumatic; M75.52 Bursitis of left shoulder; M94.212 Chondromalacia, left shoulder; X58.XXXA Exposure to other specified factors, initial encounter
CPT/HCPCS: 73221

== ENCOUNTER 2022-09-19 09:42 | Emergency (ER) | payer OTHER, SELFPAY ==
--- NOTE | 2022-09-19 09:43 | ED.URI ---
HPI - URI/Sore Throat General Chief Complaint: Upper Respiratory Infection Stated Complaint: SORE THROAT/DRAINAGE/SINUS PRESSURE Time Seen by Provider: 09/19/22 09:43 Source: patient Mode of arrival: ambulatory Limitations: no limitations History of Present Illness HPI Narrative: Ray is a 62-year-old male patient presenting to the clinic today with complaints of sore throat, nasal drainage, sinus pressure, and cough x 2 days. He reports cough is worse at night. Feels as though drainage is a going in the back of his throat. He denies any fever or chills. No known exposure to anybody with COVID, flu, or strep. MD elicited complaint: sore throat and nasal congestion Related Data Allergies Allergy/AdvReac Type Severity Reaction Status Date / Time gum mastic Allergy Intermediate swelling, Verified 09/19/22 09:55 [From Mastisol Liquid hives Adhesive] methyl salicylate Allergy Intermediate swelling, Verified 09/19/22 09:55 [From Mastisol Liquid hives Adhesive] storax Allergy Intermediate swelling, Verified 09/19/22 09:55 [From Mastisol Liquid hives Adhesive] cat dander Allergy Unknown Sneezing Verified 09/19/22 09:55 Review of Systems Review of Systems: Pertinent positives per HPI. Patient denies any fever, chills, rash, headache, visual changes, dizziness, shortness of breath, chest pain, palpitations, nausea, vomiting, diarrhea, constipation, abdominal pain, or any urinary issues. [facility] Past Medical History Medical History Arthritis Arthritis of right acromioclavicular joint Claustrophobia Erectile dysfunction Hyperlipidemia Insomnia Left rotator cuff tear Prostate cancer Spinal stenosis Subacromial impingement of left shoulder Subacromial impingement of right shoulder Tourette's Surgical History Surgical History H/O prostatectomy November 2010 History of hernia surgery Right inguinal hernia repair 1985 Left inguinal hernia repair 2013 Family History Family History Father Family history of Parkinson's disease Dementia Mother Lung cancer Social History Social History Social History: caffeine- soda 1-2 daily Smoking status: Never smoker Second hand tobacco smoke exposure: Yes (as a child- mother smoked) Alcohol intake: current Drinks per week: 7 Alcohol use details: beer. Substance use: never Substance use type: prescription drug Lack of Transportation: No Lack of Food: Never True Current Housing: I Have Housing Concerned About Future Housing: No Difficulty Paying Gas/Electric Bills: No Difficulty Paying for Meds: No Currently Unemployed: No Education: Master's Degree or Higher Difficulty w/ Childcare or Family Care: No Living arrangements: with family Gender identity (if verbalized by the patient): Male Spiritual care concerns: No Comments At the time of my signature, I reviewed and agree with the nursing past medical, surgical, social, and family history. There is no relevant family history pertinent to the patient complaint. Exam Narrative: General: Well-developed, well nourished, in no apparent distress Head: Normocephalic, atraumatic Eyes: Pupils equally round and reactive to light bilaterally, EOM intact, sclera and conjunctive clear, no discharge, lids normal Ears: TMs intact and clear, ear canals clear, no drainage, grossly hearing normal. Nose: Nares patent, clear discharge, mild inflammation, mild maxillary sinus tenderness. Mouth: Oral pharynx without lesions or masses, good dentition, MMM. Postnasal drip Neck: Supple, trachea midline, no enlargement of anterior or posterior cervical nodes, no thyroid masses or goiter palpable. Cardio: Regular rate and rhythm, s1 a
[2022-09-19 09:55] VITALS: BP 134/92; PULSE 69; RESP 16; TEMP 36.6; O2SAT 99
== END 2022-09-19 10:02 | disposition home or self-care (01) ==
PROVIDERS: Emergency Provider Nurse Practitioner Family; PCP Nurse Practitioner
DX: R09.82 Postnasal drip (principal); J06.9 Acute upper respiratory infection, unspecified; E78.5 Hyperlipidemia, unspecified; Z85.46 Personal history of malignant neoplasm of prostate; M48.00 Spinal stenosis, site unspecified; M19.011 Primary osteoarthritis, right shoulder
CPT/HCPCS: 87081; 87880; 99213; G0463

== ENCOUNTER 2022-11-13 00:25 | Day surgery (SDC) | payer OTHER, SELFPAY ==
[2022-11-07 14:59] VITALS: BMI 23.7
--- NOTE | 2022-11-07 15:01 | SUR.PREOP ---
Report to the Outpatient Waiting Room, entrance under the green pavilion located off [facility], at time __0900 on date _11/13/22 . Planned Procedure Time: _1100 . Time changes happen often and if your time is changed the preop area will call you the afternoon before. - You and your visitor will be asked to self-screen and do not enter if you have any COVID symptoms. - A mask is optional within the hospital at this time. Patients may have clear liquids (water, carbonated beverages, clear teas, apple juice) until 3 hours prior to surgery with a maximum of 20 ounces. - No food from midnight until time of surgery - Infants may have breast milk until 4 hours before surgery, infant formula 6 hours prior to surgery. - Children will be allowed to drink immediately following surgery. If applicable, please bring a bottle or sippy cup to assist with drinking. Juice, water, soda, and popsicles are readily available. For infants on formula, please bring formula the day of surgery. Pacifiers are allowed. Take the following medications with a SIP of water the morning of surgery: ___n/a DO NOT STOP ANY OF YOUR OTHER PRESCRIPTION MEDICATIONS PRIOR TO SURGERY ?EXCEPT THE FOLLOWING Medications to discontinue per physician ____n/a Date to take last dose___n/a Please no make-up, nail serbian, hairspray, perfume, deodorant, or body powder the day of surgery. No jewelry (including any body piercings) or valuables the day of surgery, leave them at home. Please take a shower or bath the night before, or the morning of, surgery with an antibacterial soap. Wear comfortable, loose fitting clothing. Children are encouraged to wear pajamas. - Jewelry must be removed prior to entering the operating room. Rings and piercings that are not removed may be cut off. - The hospital will not accept responsibility for valuables. - Please leave all valuables, including medications, at home the day of surgery. If you are going home after surgery, a licensed corrugated fastener driver must drive you home. - NO public transportation without another adult if you receive anesthesia. - We recommend that an adult stay with you for 24 hours following discharge. - We also recommend that you do not drive, make important decision, drink alcoholic beverages, or take any drugs that were not prescribed by your health care provider for at least 24 hours after your discharge time. For Pediatric surgeries, we recommend two adults accompany the child home. Follow any additional instructions given to you from your surgeon. If you or anyone in your household have experienced Covid symptoms in the past week, please notify your surgeon or the nurse liaison at the phone number below for possible testing. Telephone instructions given to _chris whitmore and asked if any additional questions and then verbalized understanding. Patient advised to call surgeon office or pre surgery nurse liaison [phone] if any additional questions.
[2022-11-13 07:09] VITALS: BP 139/88; PULSE 65; RESP 16; TEMP 36.1; O2SAT 100
[2022-11-13] MEDS: ceFAZolin 2 GM/D5W 50 ML 2 GM/50 ML BAG IVPB (07:30)
[2022-11-13] MEDS: ACETAMINOPHEN 500 MG TABLET 1000 MG PO (07:44)
[2022-11-13] MEDS: KETOROLAC 15 MG/ML VIAL (*BKC) IV PUSH (07:45)
[2022-11-13] MEDS: LACTATED RINGERS 1,000 ML 30 ML IV CONT ×2 (07:45→10:29)
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
--- NOTE | 2022-11-13 08:42 | WPDHPUPDATE1 ---
History and Physical Update Update Date/Time: 11/13/22 08:42 History and Physical has been reviewed, including an updated exam of the patient. There are NO changes in the patient's condition. Risks, benefits, and alternatives have been discussed and questions answered. Patient agrees to proceed with procedure.
--- NOTE | 2022-11-13 09:02 | WPDANESPNB ---
Anes - Peripheral Nerve Block Date/Time: 11/13/22 09:02 I have discussed with the patient/family/POA the placement of a peripheral nerve block for post-operative pain management, including associated risks, benefits, complications, and side effects. Alternative methods of post-operative analgesia were detailed. Questions were solicited and answers provided to the satisfaction of the patient/family/POA. Time-Out: A pre-procedural Time-Out was completed immediately before starting the procedure and confirmed: Patient Identification, Site, Procedure, Patient Position and the Availability of Requisite Equipment. Clinical Indications: Acute post-operative pain management requested by the operative surgeon. Nerve Block Insertion Note Anes-nerve block: interscalene left Patient position: supine Skin prep: chlorhexidine Needle: 22 gauge, stimulating, insulated echogenic needle. Needle length: 50 mm Technique: ultrasound Injectate: bupivacaine 0.5% with epi 5 mcg/ml (30 cc) and dexamethasone (mg) (4) Observations: tolerated well Complications: none Procedure start time:: 854 Procedure end time::
--- NOTE | 2022-11-13 10:26 | W.PM.PROC2 ---
Procedure Note - Detailed Date of Procedure 11/13/22 Pre-op Diagnosis Left Rot Cuff Tear Post-op Diagnosis Same Procedure Performed Left rotator cuff repair Surgeon Thomas Seth MD [employer] Librarian Bianca Uriostegui Anesthesia General and Regional Description of Procedure Patient was identified and proper site identified. In the preop holding area the anesthesia team performed a left upper extremity block. He was then taken to the operating room and transferred to the or table taking care to pad the torso and extremities. After general anesthetic induction and intubation, he was put in a semi beach chair position in the usual manner for a left shoulder procedure. His head was secured taking care to neither rotate nor extend the head and neck. The left upper extremity was prepped and draped free in usual sterile fashion. The subcutaneous tissue in the area of the incision was injected with 10 cc of 0.25% Marcaine and epinephrine solution. An oblique anterior incision was made extending from the AC joint distally in line with the fibers of the deltoid. Subcutaneous tissue was sharply dissected down to the deltoid fascia. The deltoid was dissected off the anterior portion of the acromion in the distal end of the clavicle. A 2 cm split was made at the junction between the anterior and middle thirds of the deltoid. The microsagittal saw was used to perform the acromioplasty and then the undersurface of the acromion was rasped smooth. There was some thickened bursa which was removed allowing for complete inspection of the rotator cuff. Corresponding was seen on the MRI the midportion of the supraspinatus had an area was almost full-thickness tear. This was completed. Tuberosity was prepared for the repair and then using 2. Ethibond suture through a bony bridge the cuff was repaired back to the greater tuberosity. This gave a fiore repair which was stable as the shoulder was taken through range of motion. The wound was irrigated with sterile NaCl solution. The deltoid was repaired back to the acromion with 2. Ethibond suture passed through bone and the remainder of the deltoid repair carried out with 2. Vicryl. Skin was reapproximated with a 3-0 V lock and then 3-0 nylon interrupted sutures. Sterile dressing was applied. There were no known intraoperative complications, and perioperative antibiotics were administered. Estimated Blood Loss 10 Drains No Packing No Pathology None sent Complications No immediate complications Condition Stable Disposition PACU AM Billing Surgery - Charge Forward: Surgery Billing ([id number])
[2022-11-13 10:29] VITALS: BP 135/90; PULSE 92; RESP 16; TEMP 36.3; O2SAT 100
[2022-11-13 10:45] VITALS: BP 138/92; PULSE 79; RESP 16; O2SAT 98
[2022-11-13 11:02] VITALS: BP 135/90; PULSE 68; RESP 20
[2022-11-13] MEDS: ONDANSETRON INJ 4 MG/2 ML VIAL IV PUSH (11:18)
[2022-11-13 11:30] VITALS: BP 135/90; PULSE 68; RESP 20
[2022-11-13 12:00] VITALS: BP 134/88; PULSE 63; RESP 20
== END 2022-11-13 12:07 | disposition home or self-care (01) ==
PROVIDERS: PCP Internal Medicine; Visit Provider Orthopaedic Surgery
PROC: (CPT 23420; principal; 2022-11-13 09:00)
DX: M75.112 Incomplete rotator cuff tear or rupture of left shoulder, not specified as traumatic (principal); G89.18 Other acute postprocedural pain; E78.5 Hyperlipidemia, unspecified; G47.00 Insomnia, unspecified; Z85.46 Personal history of malignant neoplasm of prostate; F95.2 Tourette's disorder
CPT/HCPCS: 64415; 23412; A4565; A9270; J0330; J0690; J1100; J1170; J1885; J2250; J2405; J2704; J3010; J7120

== ENCOUNTER 2022-12-25 11:15 | Outpatient (RCR) | payer MEDICARE, OTHER, MEDICAID, SELFPAY ==
[2022-11-15 12:30] VITALS: BP_SYST 80
--- NOTE | 2022-11-15 13:25 | OPREHPOC ---
Outpatient Therapy Plan of Care This is a Multidisciplinary Plan of Care that may contain components documented by all disciplines (PT, OT, and ST.) PT Problem 1 PT Problem #1 Knowledge Deficit PT Goal 1 Goal 1* indep with HEP PT Problem 2 PT Problem #2 Pain PT Goal 1 Goal 1* pt report pain rating at worst of 5/10 2* pt not using the sling PT Problem 3 PT Problem #3 Impaired Strength PT Goal 1 Goal standing L shoulder 5 reps through available ROM: 1* flexion with 3# hand wt 2* abduction with 2# hand wt 3* ER with elbow at side 3# hand wt PT Problem 4 PT Problem #4 Impaired Range of Motion PT Goal 1 Goal standing active L shoulder ROM: 1* flexion 130' 2* abduction 120' 3* IR- reach behind back, palm to waist 4* ER- reach behind head, palm to back of head
--- NOTE | 2022-11-15 13:25 | PTOPEVAL1 ---
Assessment and note entered by Mariana Cross, PT Evaluation Information Assessment Status Evaluation Diagnosis s/p L rotator cuff repair surgery Onset 11-13-22 Subjective Information using sling on L arm, using ice and pain meds; told him to do pendulum exercises, did yesterday; also used L arm yesterday for laundry and home tasks; last night more pain; ACTIVITY: active and indep with all activities, retired. Reported Pain Level Pain Score 5: Self Report Additional Pain Score Comments pain range yesterday and today: 5-10/10; anterior and lateral shoulder; reinforced ice over shoulder and support to arm; is sleeping in bed with sling on; Assessment PT Clinical Summary Ray is s/p L rotator cuff repair surgery. He states prior to surgery, he had limited ROM. He is retired, but active and indep with all home tasks prior to surgery. With the evaluation: he has decreased ROM of L shoulder with post op pain; he has a sling over L UE; PER protocol: PROM only for 2 weeks, so strength not assessed today. Skilled PT services are indicated for modalities to decrease pain; therapeutic exercises and activities to increase ROM and strength per protocol; education for home exercises and progression of activity. Plan of Care Interventions Electrical Stimulation,Hot Pack/Cold Pack,Manual Therapy,Neuro Re-education,Patient Education,Therapeutic Activities,Therapeutic Exercise,Ultrasound,Other Other Interventions EVET[facility] christensen PT Services Indicated Yes Treatment Frequency and 2x/wk for 6 weeks Duration These treatments will address the objective and functional deficits as defined above. The patient will be advanced safely and appropriately in order for the patient to progress towards his/her prior level of function. Additional exercises will be introduced and as well as a comprehensive home exercise program upon discharge, if needed, ?to ensure carryover of functional gains achieved in the clinic. This treatment plan has been reviewed and agreement upon by the patient.
--- NOTE | 2022-11-29 09:51 | PCPTNOTE ---
pt called and canceled today's treatment appt due to not sleeping well last night, has more pain in shoulder--may have lifted and used his arm too much.
--- NOTE | 2022-12-13 11:19 | PCPTNOTE ---
pt called and canceled today's appt due to having back pain.
--- NOTE | 2022-12-21 11:35 | PCPTNOTE ---
pt called and canceled today's appt due to illness.
--- NOTE | 2023-01-08 11:28 | PTOPDC ---
Assessment and note entered by Mariana Cross, PT Evaluation Information Assessment PT Clinical Summary DISCHARGE PHYSICAL THERAPY Ray called after his dr appt on 12-26-22 and canceled his remaining PT appointments. told him he did not need any more therapy. Goals were not addressed. Discharge PT services. Plan of Care PT Services Indicated No
== END 2023-01-08 14:06 | disposition home or self-care (01) ==
LOC: ANHPT 11:15
PROVIDERS: PCP Internal Medicine; Visit Provider Orthopaedic Surgery
DX: Z48.89 Encounter for other specified surgical aftercare (principal); Z98.890 Other specified postprocedural states
CPT/HCPCS: 73030; 97014; 97110; 97140; 97161; G0283

== ENCOUNTER 2022-12-25 12:02 | Outpatient (CLI) | payer MEDICARE, MEDICAID, SELFPAY ==
--- NOTE | ~2022-12-25 | XR_ITS ---
EXAMINATION: XR shoulder LT min 2V DATE: 12/25/2022 12:23 INDICATION: 6 weeks post rotator cuff surgery. TECHNIQUE: 4 views of left shoulder were obtained. COMPARISON: Left shoulder radiographs 04/26/2022 FINDINGS: Bone alignment is normal. No fracture. There are likely changes of distal clavicle resectio n. Glenohumeral joint is normal. IMPRESSION: 1. No fracture. Reviewed, dictated and finalized at [facility]. IMPRESSION: 1. No fracture.
== END 2022-12-25 12:03 | disposition home or self-care (01) ==
PROVIDERS: PCP Internal Medicine; Visit Provider Orthopaedic Surgery
DX: Z98.890 Other specified postprocedural states (principal)
CPT/HCPCS: 73030

== ENCOUNTER 2023-01-03 10:44 | Outpatient (CLI) | payer MEDICARE, MEDICAID, SELFPAY ==
[2023-01-03 18:24] LABS: Basophils Percent Auto 0.6 % (0.2-1.2); Eosinophils Absolute Auto 0.1 K/mm3 (0-0.3); Eosinophils Percent Auto 2.8 % (0-4.4); Hematocrit 46.3 % (42.0-52.0); Hemoglobin 15.2 g/dL (14.0-18.0); Immature Granulocyte Absolute 0.03 K/mm3 (0.00-0.031); Immature Granulocyte Percent A 0.6 % (0-0.5); Lymphocytes Absolute Auto 1.86 K/mm3 (0.9-3.2); Lymphocytes Percent Auto 36.6 % (18.3-44.2); Mean Corpuscular HGB Conc 32.8 g/dl (32-36); Mean Corpuscular Hemoglobin 30.4 pg (26-34); Mean Corpuscular Volume 92.6 fl (80-100); Monocytes Absolute Auto 0.6 K/mm3 (0.1-0.6); Monocytes Percent Auto 11.6 % (2.6-8.5); Neutrophils Absolute Auto 2.4 K/mm3 (1.3-6.7); Neutrophils Percent Auto 47.8 % (45.5-73.1); Platelet Count Result 273 k/mm3 (150-375); Red Cell Distribution Width 12.5 % (11.5-14.5); White Blood Count 5.1 K/mm3 (4.5-10.0)
[2023-01-03 19:21] LABS: Alanine Aminotransferase 27 U/L (6-50); Albumin Level 4.6 g/dL (3.5-5.1); Alkaline Phosphatase 78 U/L (38-126); Anion Gap 6 mmol/L (8-16); Aspartate Amino Transferase 35 U/L (17-59); Bilirubin,Total 0.8 mg/dL (0.2-1.3); Blood Urea Nitrogen 17 mg/dL (9-20); Calcium 9.3 mg/dL (8.4-10.2); Carbon Dioxide 32 mmol/L (22-30); Chloride 102 mmol/L (98-107); Estimated Glomerular Filt Rate > 60; Glucose 102 mg/dL (65-110); Potassium 4.4 mmol/L (3.4-5.0); Sodium 140 mmol/L (137-145)
[2023-01-03 20:22] LABS: Vitamin D 25 Hydroxy 35.3 ng/mL
== END 2023-01-03 10:45 | disposition home or self-care (01) ==
LOC: ANHGOSHLAB 10:46
PROVIDERS: PCP Internal Medicine; Visit Provider Nurse Practitioner Family
DX: R53.83 Other fatigue (principal); E53.8 Deficiency of other specified B group vitamins; E55.9 Vitamin D deficiency, unspecified; I10 Essential (primary) hypertension; Z13.29 Encounter for screening for other suspected endocrine disorder
CPT/HCPCS: 36415; 80053; 82306; 82607; 84443; 85025

== ENCOUNTER 2023-01-08 13:21 | Outpatient (CLI) | payer MEDICARE, MEDICAID, SELFPAY ==
--- NOTE | ~2023-01-08 | XR_ITS ---
Clinical Indication: Fatigue PA and lateral views of the chest: Comparison: 12/13/2010 Findings: The lungs are clear, without evidence of focal consolidation or pleural effusion. Cardiome diastinal silhouette is within normal limits. Bones and soft tissues are unremarkable. Impression: Normal chest. Reviewed, dictated and finalized at [facility]. Impression: Normal chest.
== END 2023-01-08 13:22 | disposition home or self-care (01) ==
LOC: ANHIMG 13:24
PROVIDERS: PCP Internal Medicine; Visit Provider Nurse Practitioner
DX: R53.83 Other fatigue (principal)
CPT/HCPCS: 71046

== ENCOUNTER 2023-03-14 12:21 | Emergency (ER) | payer MEDICARE, MEDICAID, SELFPAY ==
[2023-03-14 12:32] VITALS: BP 130/88; PULSE 78; RESP 16; TEMP 36.5; O2SAT 99
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
== END 2023-03-14 13:10 | disposition home or self-care (01) ==
PROVIDERS: Emergency Provider Nurse Practitioner Family; PCP Nurse Practitioner
DX: U07.1 COVID-19 (principal); E78.5 Hyperlipidemia, unspecified; M19.011 Primary osteoarthritis, right shoulder; M48.00 Spinal stenosis, site unspecified; Z85.46 Personal history of malignant neoplasm of prostate; Z90.79 Acquired absence of other genital organ(s)
CPT/HCPCS: 87426; 87804; 99213; C9803; G0463

== ENCOUNTER 2023-05-10 14:00 | Outpatient (RCR) | payer MEDICARE, MEDICAID, SELFPAY ==
--- NOTE | 2023-04-09 14:35 | OPREHPOC ---
Outpatient Therapy Plan of Care This is a Multidisciplinary Plan of Care that may contain components documented by all disciplines (PT, OT, and ST.) PT Problem 1 PT Problem #1 Knowledge Deficit PT Goal 1 Goal 1* indep with HEP 2* correct body mechanics with exercises PT Problem 2 PT Problem #2 Pain PT Goal 1 Goal 1* pain at worst 4/10 2* pt report times of no pain 3* Oswestry self assessment of 38% limitation in activity level PT Problem 3 PT Problem #3 Impaired Strength PT Goal 1 Goal 1* maintain correct cervical position in sit and standing 2* active R shoulder flexion with out an increase in neck pain
--- NOTE | 2023-04-09 14:35 | PTOPEVAL1 ---
Assessment and note entered by Mariana Cross, PT Evaluation Information Assessment Status Evaluation Diagnosis cervicalgia Onset about 3 weeks Subjective Information neck pain after having COVID about 3-4 days; is better, but still hurts; is leaving for vacation next week and want to get better; Activity: not working; decrease use of R arm due to pain; normal---no heavy lifting due to L shoulder surgery/pain; most L handed, but ambidexterous; Reported Pain Level Pain Score Self Report Additional Pain Score Comments pain range in past few days 2-8/10; R side cervical spine- sharp, hurts; has decreased since onset of pain increase pain: using R arm decrease pain: wear cervical collar; pain meds, deep tissue massages 2x; Oswestry self assessment functional score 52% limitation sleep- have insomnia, but neck pain awakens him 1- 2 x/night with changing position Assessment PT Clinical Summary Ray has the diagnosis of cervicalgia. He reports onset after 3-4 days of being ill with COVID. Pain has decreased since onset of pain. Self assessment Oswestry score of 52% limitation in activity level. Reports cervical pain increases with use of R UE. Sleep and activity level are disrupted due to neck pain. With the evaluation: pain is increased with cervical rotation to R and L with decreased ROM; there is tightness and spasms over R > L cervical and upper traps; Skilled PT is indicated for modalities to decrease pain and spasms, therapeutic exercises to increase flexibility and posture with education for HEP and posture/body mechanics. Plan of Care Interventions Electrical Stimulation,Hot Pack/Cold Pack,Manual Therapy,Neuro Re-education,Patient Education,Therapeutic Activities,Therapeutic Exercise,Ultrasound,Other Other Interventions [facility] PT Services Indicated Yes Treatment Frequency and 2x/wk for 4 weeks Duration These treat
--- NOTE | 2023-04-09 15:28 | PCPTNOTE ---
during eval, pt reported that he will be out of town from Apr 16 to .
--- NOTE | 2023-04-26 13:11 | PCPTNOTE ---
Patient cancelled today's therapy treatment.
--- NOTE | 2023-05-10 14:58 | PTOPDC ---
Assessment and note entered by Mariana Cross, PT Discharge Information Assessment Status Discharge Diagnosis cervicalgia Onset about 3 weeks Subjective Information doing better; has been doing the exercises; Reported Pain Level Pain Score Self Report Additional Pain Score Comments pain range 0-3/10 in the past week; dull achey pain increase pain: sleeping wrong; turn head too quickly decrease pain: therapy treatments, heat, ice, tylenol, wear cervical collar Assessment PT Clinical Summary Ray has received a total of 9 PT sessions. Compared to the initial evaluation: pain decreased from 2-8/10 to 0-3/10; self assessment Neck Disability Index rating of 16% limitation in activity level; increased cervical rotation ROM to R and L, without pain; decreased spasms with palpation over R upper traps and levator scapula; no pain with shoulder flexion; indep with home exercise program and good posture. The goals were achieved. Discharge from PT services. He is to continue with his exercises. Plan of Care PT Services Indicated No
== END 2023-05-10 15:29 | disposition home or self-care (01) ==
LOC: ANHPT 14:00
PROVIDERS: PCP Nurse Practitioner; Visit Provider Nurse Practitioner
DX: M54.2 Cervicalgia (principal)
CPT/HCPCS: 97032; 97110; 97140; 97161

== ENCOUNTER 2023-06-14 16:27 | Outpatient (CLI) | payer MEDICARE, MEDICAID, SELFPAY ==
--- NOTE | ~2023-06-14 | MR_ITS ---
MRI of the cervical spine Clinical History: Cervicalgia Technique: Axial T2-weighted and gradient images, and sagittal T1-weighted, T2-weighted, and STIR liberty ges were acquired. Findings: There is no fracture or subluxation of the cervical spine. Vertebral bodies maintain normal height and alignment. No suspicious bone marrow signal abnormality seen. At C2-C3, there is no disc bulge or herniation. No spinal canal stenosis, cord compression, or neural foraminal narrowing. At C3-C4, there is no disc bulge or herniation. No spinal canal stenosis or cord compression. There i s bilateral facet arthropathy, right worse than left, with bilateral neural foraminal narrowing, righ t worse than left. At C4-C5, there is minimal disc osteophyte complex. No spinal canal stenosis or cord compression. The re is bilateral facet arthropathy, right worse than left. Probable minimal bilateral neural foraminal narrowing. At C5-C6, there is moderate degenerative disc narrowing. Disc ossify complex is present, with mild ca nal stenosis and mild flattening the ventral cord. There is bilateral neural foraminal narrowing with mild facet arthropathy bilaterally. At C6-C7, there is moderate degenerative disc narrowing. There is minimal disc osteophyte convex. No lul spinal canal stenosis or cord compression. There is probable mild bilateral neural foraminal na rrowing. No abnormal signal seen in the spinal cord. Paravertebral soft tissues are unremarkable. Impression: Moderate degenerative spondylosis at C5-C6 and C6-C7, as detailed above. Additional mild degenerative change at the remaining cervical levels, as above. Reviewed, dictated and finalized at [facility]. Impression: Moderate degenerative spondylosis at C5-C6 and C6-C7, as detailed above. Additional mild degenerative change at the remaining cervical levels, as above.
== END 2023-06-14 16:28 | disposition home or self-care (01) ==
LOC: ANHIMG 16:28
PROVIDERS: PCP Internal Medicine; Visit Provider Nurse Practitioner
DX: M54.2 Cervicalgia (principal); M43.02 Spondylolysis, cervical region
CPT/HCPCS: 72141

== ENCOUNTER 2023-07-09 08:45 | Outpatient (RCR) | payer MEDICARE, MEDICAID, SELFPAY ==
--- NOTE | 2023-06-15 09:07 | OPREHPOC ---
Outpatient Therapy Plan of Care This is a Multidisciplinary Plan of Care that may contain components documented by all disciplines (PT, OT, and ST.) PT Problem 1 PT Problem #1 Knowledge Deficit PT Goal 1 Goal *indep with HEP * good posture with exercises PT Problem 2 PT Problem #2 Pain PT Goal 1 Goal 1* pt report pain at worst of 5/10 2* radicular pain to R elbow at worst 3* self assessment functional score of 40% limitation with Neck Disability Index 4* pt report with sleeping, awaken 1x/night due to pain in neck 5* pt report headaches occur 1x/wk PT Problem 3 PT Problem #3 Impaired Range of Motion PT Goal 1 Goal decrease spasm over cervical and upper traps areas , to increase cervical motion, for improved self care and driving ability: active cervical ROM In sittin* rotation R 60' 2* rotation L 65' no pain increase with 3 reps 3* rotation R 4* rotation L
--- NOTE | 2023-06-15 09:07 | PTOPEVAL1 ---
Assessment and note entered by Mariana Cross, PT Evaluation Information Assessment Status Evaluation Diagnosis cervicalgia Onset 06-04-23 Subjective Information return of neck pain, did not really do anything, but trying to exercise and more activity; recent PT due to neck pain, able to decrease pain and was d/c; had MRI yesterday, moderate changes with facet arthropathy and canal stenosis C 3-4-5-6-7 levels. history of neck and back pain; Activity: retired, active doing all home and self care tasks; Reported Pain Level Pain Score Self Report Additional Pain Score Comments pain range past few days 6-12/03;R cervical and into R shoulder, intermittent to palm, thumb and 1st finger--numb, little tingle; decrease pain: wear soft collar, heat, ice, over the counter meds increase pain: more activity--home activity or fitness exercises sleeping awaken from pain 1-2x/night; having headaches about every other day, 3 hours, ease with soft collar or meds Assessment PT Clinical Summary Ray has the diagnosis of cervical pain, radicular into R UE to fingers intermittent. His history includes cervical pain, bilateral shoulder pain and shoulder surgery. Neck Disability Index score of 70% with disrupted sleep, decreased activity level and headaches. He had recent PT treatment that decreased his pain. MRI report states moderate changes with narrowing disc space and facet narrowing C 2-7. With the evaluation: decreased cervical rotation ROM to R and L with pain and over R cervical and upper traps, with spasms; Skilled PT services are indicated for modalities to decrease pain and spasms, therapeutic exercises to increase cervical flexibility and education for HEP and posture. Plan of Care Interventions Electrical Stimulation,Hot Pack/Cold Pack,Manual Therapy,Mechanical Traction,Patient Education,Therapeutic Activities,Therapeutic Exercise,Ultrasound,Other Other Interventions IASANUJA, naeem ne
--- NOTE | 2023-07-16 08:55 | PCPTNOTE ---
pt canceled today's reeval appt;
--- NOTE | 2023-08-09 11:32 | PTOPDC ---
Assessment and note entered by Mariana Cross, PT Discharge Information Assessment Status Discharge - Pt Not Present Diagnosis cervicalgia Onset 06-04-23 Subjective Information pt not seen this date Assessment PT Clinical Summary Ray has received 6 PT sessions, from June 14 to July 08; he then called and canceled his reevaluation appointment and has not returned. The goals were not addressed. Discharge PT due to pt stopped attending. Plan of Care PT Services Indicated No
== END 2023-08-10 11:54 | disposition home or self-care (01) ==
LOC: ANHPT 08:45
PROVIDERS: PCP Internal Medicine; Visit Provider Nurse Practitioner
DX: M54.2 Cervicalgia (principal)
CPT/HCPCS: 97014; 97032; 97110; 97140; 97161; 97530; G0283

== ENCOUNTER 2023-11-20 13:51 | Outpatient (CLI) | payer MEDICARE, SELFPAY ==
[2023-11-20 18:52] LABS: Basophils Percent Auto 0.6 % (0.2-1.2); Eosinophils Absolute Auto 0.1 K/mm3 (0-0.3); Hematocrit 44.2 % (42.0-52.0); Hemoglobin 14.3 g/dL (14.0-18.0); Immature Granulocyte Absolute 0.02 K/mm3 (0.00-0.031); Immature Granulocyte Percent A 0.3 % (0-0.5); Lymphocytes Absolute Auto 2.11 K/mm3 (0.9-3.2); Lymphocytes Percent Auto 32.3 % (18.3-44.2); Mean Corpuscular HGB Conc 32.4 g/dl (32-36); Mean Corpuscular Volume 92.9 fl (80-100); Mean Platelet Volume 9.9 fl (7.4-10.4); Monocytes Absolute Auto 0.8 K/mm3 (0.1-0.6); Monocytes Percent Auto 11.8 % (2.6-8.5); Neutrophils Absolute Auto 3.5 K/mm3 (1.3-6.7); Platelet Count Result 280 k/mm3 (150-375); Red Blood Count 4.76 M/mm3 (4.6-6.20); Red Cell Distribution Width 12.9 % (11.5-14.5); White Blood Count 6.5 K/mm3 (4.5-10.0)
[2023-11-20 19:33] LABS: Alanine Aminotransferase 30 U/L (6-50); Albumin Level 4.3 g/dL (3.5-5.1); Alkaline Phosphatase 67 U/L (38-126); Anion Gap 7 mmol/L (4-12); Aspartate Amino Transferase 38 U/L (17-59); Bilirubin,Total 0.6 mg/dL (0.2-1.3); Blood Urea Nitrogen 15 mg/dL (9-20); Carbon Dioxide 31 mmol/L (22-30); Chloride 100 mmol/L (98-107); Cholesterol 292 mg/dL (0-200); Estimated Glomerular Filt Rate > 60; Glucose 98 mg/dL (65-110); HDL Direct 61 mg/dL; Sodium 138 mmol/L (137-145); Triglycerides 161 mg/dL (<150)
[2023-11-20 19:44] LABS: LDL Cholesterol Direct 171 mg/dL
[2023-11-20 20:04] LABS: Prostate Specific Antigen < 0.1 ng/mL (< OR = 4.0)
== END 2023-11-20 13:52 | disposition home or self-care (01) ==
LOC: ANHGOSHLAB 13:55
PROVIDERS: PCP Internal Medicine; Visit Provider Nurse Practitioner
DX: E78.2 Mixed hyperlipidemia (principal); C61 Malignant neoplasm of prostate; Z13.29 Encounter for screening for other suspected endocrine disorder
CPT/HCPCS: 36415; 80053; 80061; 84153; 85025

== ENCOUNTER 2023-12-28 08:44 | Emergency (ER) | payer MEDICARE, SELFPAY ==
--- NOTE | ~2023-12-28 | XR_ITS ---
Clinical Indication: Abnormal lung sounds PA and lateral views of the chest: Comparison: 01/08/2023 Findings: The lungs are clear, without evidence of focal consolidation or pleural effusion. Cardiome diastinal silhouette is within normal limits. Bones and soft tissues are unremarkable. Impression: Normal chest. Reviewed, dictated and finalized at [facility]. Impression: Normal chest.
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
[2023-12-28 09:03] VITALS: BP 116/92; PULSE 65; RESP 16; TEMP 36.1; O2SAT 100
[2023-12-28 09:20] LABS: EDCOVIDSCREEN Negative (Negative); EDINFLUASCREEN Negative (Negative); EDINFLUBSCREEN Negative (Negative); EDSTREPNEGPOS1 Negative (Negative)
== END 2023-12-28 09:42 | disposition home or self-care (01) ==
PROVIDERS: Emergency Provider Nurse Practitioner Family; PCP Internal Medicine
DX: J06.9 Acute upper respiratory infection, unspecified (principal); Z20.822 Contact with and (suspected) exposure to COVID-19; E78.5 Hyperlipidemia, unspecified; M19.011 Primary osteoarthritis, right shoulder; Z85.46 Personal history of malignant neoplasm of prostate; Z90.79 Acquired absence of other genital organ(s)
CPT/HCPCS: 71046; 87081; 87426; 87804; 87880; 99213; G0463

== ENCOUNTER 2024-04-21 12:02 | Outpatient (CLI) | payer MEDICARE, SELFPAY ==
--- NOTE | ~2024-04-21 | XR_ITS ---
AP view of the pelvis and lateral view of the left hip Clinical history: Pain Findings: No acute fracture or dislocation is seen. Osseous alignment is anatomic. Bilateral hip join ts are intact. Possible sclerosis along the iliac side of the left SI joint. Soft tissues are unremar kable. Impression: No acute abnormality. Possible sclerotic change along the iliac side of left SI joint, which could reflect unilateral sacro iliitis. Reviewed, dictated and finalized at location [facility] Impression: No acute abnormality. Possible sclerotic change along the iliac side of left SI joint, which could re flect unilateral sacroiliitis.
== END 2024-04-21 12:03 | disposition home or self-care (01) ==
LOC: GOSHIMG 12:04
PROVIDERS: PCP Nurse Practitioner; Visit Provider Nurse Practitioner
DX: M25.552 Pain in left hip (principal); R10.2 Pelvic and perineal pain
CPT/HCPCS: 73501

== ENCOUNTER 2024-06-26 14:29 | Emergency (ER) | payer MEDICARE, SELFPAY ==
[2024-06-26 14:38] VITALS: BP 125/79; PULSE 71; RESP 18; TEMP 36.6; O2SAT 98
--- OUTSIDE RECORDS SUMMARY | 2024-06-26 14:55 | XMS_ITS | Referral Summary ---
Author Organization [facility] Address [address] [place] [id number] Care Team Providers Care Certified Athletic Trainer Name Role Phone Israel Lund DO Primary Care Provider [phone]- [phone] Allergies Active Allergy Reactions Criticality Noted Date Comments Adhesive Blisters High 05/09/2023 Other Sneezing Low 10/24/2018 Cats Surgical glue Penicillins Rash Medium 05/09/2023 Propolis (Bee Glue) Other (See comments) Low 2023 Medications naproxen sodium 220 mg capsule Take 220 mg by mouth every 12 (twelve) hours Active acetaminophen (TYLENOL) 500 mg tablet Take 2 tablets (1,000 mg total) by mouth every 6 (six) hours as needed for pain Active ibuprofen (ADVIL,MOTRIN) 200 mg tab/cap Take 3 tablet/capsu le (600 mg total) by mouth every 6 (six) hours as needed for pain Active albuterol HFA (PROVENTIL HFA,VENTOLIN HFA,PROAIR HFA) 90 mcg/actuation inhaler 03/31/2021 Active diazePAM (VALIUM) 10 mg tablet Take 1 tablet (10 mg total) by mouth nightly as needed for sleep 05/09/2021 Active Active Problems No known active problems Social History Tobacco Use Types Packs/Day Years Used Date Smoking Tobacco: Never Smokeless Tobacco: Never AUDIT-C Answer Date Recorded Q1: How often do you have a drink containing alc ohol? 2-3 times a week 12/07/2021 Q2: How many drinks containi ng alcohol do you have on a typical day when you are drinking? 3 or 4 12/07/2021 Q3: How often do you have si x or more drinks on one occasion? Never 12/07/2021 Sex and Gender Information Value Date Recorded Sex Assigned at Not on file Legal Sex Male 9:41 AM CDT Gender Identity Not on file Sexual Orientation Not on file Last Filed Vital Signs Vital Sign Reading Time Taken Comments Blood Pressure 138/88 05/31/2023 1:35 PM ANIMAL TRAINER Pulse 75 05/31/2023 1:35 PM ANIMAL TRAINER Temperature 36.5 C (97.7 F) 05/31/2023 11:43 AM ANIMAL TRAINER Respiratory Rate 16 05/31/2023 1:35 PM ANIMAL TRAINER Oxygen Saturation 99% 05/31/2023 1:35 PM ANIMAL TRAINER Inhaled Oxygen Concentration - - Weight 77.7 kg (171 lb 6.4 oz) 05/31/2023 11:43 AM ANIMAL TRAINER Height 180.3 cm (5' 11 ) 05/31/2023 11:43 AM ANIMAL TRAINER Body Mass Index 23.91 05/31/2023 11:43 AM ANIMAL TRAINER Plan of Treatment Not on file Goals Goal Patient Goal Type Associated Problems Recent Progress Patient-Stated? Author CCM Chronic Pain Care Plan Chronic Care Management On track(2021 1:38 PM CDT) Gisele Felix, RN Note: Problem: Chronic Pain Goals: 1. Minimize further functional decline 2. Maximize quality of life 3. Control pain Strategies: - Activity/exercise program recommendation - Conservative stepwise pain medicine strategy with multi-disciplinary approach - Recommend healthy lifestyle strategies and compensatory methods as needed Insurance [facility] MEDICARE [employer] MEDICARE Care Teams Certified Athletic Trainer Relationship Specialty Start Date End Date Israel Lund DO PCP - General Internal Medicine 05/08/23
--- OUTSIDE RECORDS SUMMARY | 2024-06-26 14:55 | XMS_ITS | Clinical Summary ---
Author Organization [facility] Address [address] [place] [id number] Care Team Providers Care Roadside Mechanic Name Role Phone Israel Lund DO Primary Care Provider +1- [phone] Allergies Active Allergy Reactions Criticality Noted Date [...] Active Active Problems No known active problems Surgical History Surgery Date Site/Laterality Comments PROSTATE SURGERY HERNIA REPAIR Medical History Medical History Date Comments Low back pain Cancer (HCC) Anxiety Tourette's Depression Family History Medical History Relation Name Comments Alzheimer's disease Father Dementia Father No Known Problems Mother Relation Name Status Comments Father Alive Mother Alive Social History Tobacco Use Types Packs/Day Years [...] on file Sexual Orientation Not on file Obstetrics History Last Filed Vital Signs Vital Sign Reading Time Taken Comments Blood Pressure 138/88 05/31/2023 1:35 PM HYDRAULIC MINER Pulse 75 05/31/2023 1:35 PM HYDRAULIC MINER Temperature 36.5 C (97.7 F) 05/31/2023 11:43 AM HYDRAULIC MINER Respiratory Rate 16 05/31/2023 1:35 PM HYDRAULIC MINER Oxygen Saturation 99% 05/31/2023 1:35 PM HYDRAULIC MINER Inhaled Oxygen Concentration - - Weight 77.7 kg (171 lb 6.4 oz) 05/31/2023 11:43 AM HYDRAULIC MINER Height 180.3 cm (5' 11 ) 05/31/2023 11:43 AM HYDRAULIC MINER Body Mass Index 23.91 05/31/2023 11:43 AM HYDRAULIC MINER Plan of Treatment Health Maintenance Due Date Last Done Comments Colon Cancer Screening-Colonoscopy 1960 Depression Screening 1960 Hepatitis C Screening 1960 Prostate Cancer Screening-PSA 1960 DTaP/Tdap/Td Vaccine (1 - Tdap) 07/16/1970 Hepatitis B Screening 07/16/1977 Regular Well Visit/Exam 18-64 07/16/1977 Zoster Vaccine (1 of 2) 07/16/2009 Covid-19 Vaccine (3 - 2023-2 5 season) 2023 12/13/2020, 11/07/2020 Influenza Vaccine (#1) 2023 Pneumococcal vaccine <65 Aged Out No longer eligible based on patient's age to complete this topic Goals Goal Patient Goal Type Associated Problems Recent Progress Patient-Stated? Author CCM Chronic Pain Care Plan Chronic Care Management On track(2021 1:38 PM CDT) No Gisele Florian, RN Note: Problem: Chronic Pain Goals: 1. Minimize further functional decline 2. Maximize quality of life 3. Control pain Strategies: - Activity/exercise program recommendation - Conservative stepwise pain medicine strategy with multi-disciplinary approach - Recommend healthy lifestyle strategies and compensatory methods as needed Insurance [facility] MEDICARE [facility] MEDICARE Care Teams Roadside Mechanic Relationship Specialty Start Date End Date Israel Lund DO PCP - General Internal Medicine 05/08/23
--- OUTSIDE RECORDS SUMMARY | 2024-06-26 14:55 | XMS_ITS | Clinical Summary ---
Author Organization [facility] Address [address] [place] [id number] Care Team Providers Care Cooperative Education Coordinator Name Role Phone Unavailable Primary Care Provider Unavailabl e Social History Tobacco Use Types Packs/Day Years Used Date Smoking Tobacco: Never Assessed Sex and Gender Information Value Date Recorded Sex Assigned at Not on file Legal Sex Male 4:44 PM CDT Gender Identity Not on file Sexual Orientation Not on file Plan of Treatment Health Maintenance Due Date Last Done Comments Colorectal Cancer Screening Colonoscopy (10 Years) 1959 Annual Physical 07/16/1962 Hepatitis C 07/16/1977 DTaP, Tdap and Td Vaccines ( 1 - Tdap) 07/16/1978 Zoster Vaccines (1 of 2) 07/16/2009 COVID-19 Vaccine (2023-2 5 season) 2023 Influenza Adult (#1) 2023 RSV Immunization or 60+ Years (1 - 1-dose 75+ series) 07/16/2034 Meningococcal B Vaccine Aged Out No l onger eligible based on patient's age to complete this topic Meningococcal Vaccine Aged Out No shawn arelis eligible based on patient's age to complete this topic Pneumococcal Vaccine: Pediat rics (0 to 5 Years) and At-Risk Patients (6 to 64 Years) Aged Out No longer eligible b ased on patient's age to complete this topic RSV Immunizations Under 20 Months Aged Out No longer eligible based on patient's age to complete this topic
[2024-06-26 15:12] LABS: EDSTREPNEGPOS1 Negative (Negative)
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
[2024-06-26 15:17] LABS: EDCOVIDSCREEN Negative (Negative)
[2024-06-26 15:18] LABS: EDINFLUASCREEN Negative (Negative); EDINFLUBSCREEN Negative (Negative)
== END 2024-06-26 15:20 | disposition home or self-care (01) ==
PROVIDERS: Emergency Provider Nurse Practitioner Family; PCP Internal Medicine
DX: B34.9 Viral infection, unspecified (principal); J06.9 Acute upper respiratory infection, unspecified; J02.9 Acute pharyngitis, unspecified; Z20.822 Contact with and (suspected) exposure to COVID-19; E78.5 Hyperlipidemia, unspecified; Z85.46 Personal history of malignant neoplasm of prostate; M19.011 Primary osteoarthritis, right shoulder
CPT/HCPCS: 87081; 87426; 87804; 87880; 99213; G0463

== ENCOUNTER 2024-07-02 10:58 | Emergency (ER) | payer MEDICARE, SELFPAY ==
[2024-07-02 11:08] VITALS: BP 124/81; PULSE 79; RESP 16; TEMP 36.3; O2SAT 98
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
--- OUTSIDE RECORDS SUMMARY | 2024-07-02 12:41 | XMS_ITS | Clinical Summary ---
Author Organization [facility] Address [address] [place] [id number] Care Team Providers Care Complaint Coordinator Name Role Phone Unavailable Primary Care [...] 07/16/2009 COVID-19 Vaccine (2023-2 5 season) 2023 RSV Immunization or 60+ Years (1 [...]
--- OUTSIDE RECORDS SUMMARY | 2024-07-02 12:41 | XMS_ITS | Referral Summary ---
Author Organization [facility] Address [address] [place] [id number] Care Team Providers Care Bank Clerk Name Role Phone Israel Lund DO Primary Care Provider +1- [phone] Allergies Active Allergy Reactions Criticality Noted Date [...] Comments Blood Pressure 138/88 05/31/2023 1:35 PM FILLING AND PACKING SUPERVISOR Pulse 75 05/31/2023 1:35 PM FILLING AND PACKING SUPERVISOR Temperature 36.5 C (97.7 F) 05/31/2023 11:43 AM FILLING AND PACKING SUPERVISOR Respiratory Rate 16 05/31/2023 1:35 PM FILLING AND PACKING SUPERVISOR Oxygen Saturation 99% 05/31/2023 1:35 PM FILLING AND PACKING SUPERVISOR Inhaled Oxygen Concentration - - Weight 77.7 kg (171 lb 6.4 oz) 05/31/2023 11:43 AM FILLING AND PACKING SUPERVISOR Height 180.3 cm (5' 11 ) 05/31/2023 11:43 AM FILLING AND PACKING SUPERVISOR Body Mass Index 23.91 05/31/2023 11:43 AM FILLING AND PACKING SUPERVISOR Plan of Treatment Not on file Goals [...] strategies and compensatory methods as needed Insurance [facility] MEDICARE [employer] MEDICARE Care Teams Bank Clerk Relationship Specialty Start Date End Date Israel Lund DO PCP - General Internal Medicine 05/08/23
--- OUTSIDE RECORDS SUMMARY | 2024-07-02 12:41 | XMS_ITS | Clinical Summary ---
Author Organization [facility] Address [address] [place] [id number] Care Team Providers Care Psychiatric Arnp Name Role Phone Israel Lund DO Primary Care Provider +1- [phone] Allergies Active Allergy Reactions Criticality Noted Date [...] Comments Blood Pressure 138/88 05/31/2023 1:35 PM AIRCRAFT LAY OUT WORKER Pulse 75 05/31/2023 1:35 PM AIRCRAFT LAY OUT WORKER Temperature 36.5 C (97.7 F) 05/31/2023 11:43 AM AIRCRAFT LAY OUT WORKER Respiratory Rate 16 05/31/2023 1:35 PM AIRCRAFT LAY OUT WORKER Oxygen Saturation 99% 05/31/2023 1:35 PM AIRCRAFT LAY OUT WORKER Inhaled Oxygen Concentration - - Weight 77.7 kg (171 lb 6.4 oz) 05/31/2023 11:43 AM AIRCRAFT LAY OUT WORKER Height 180.3 cm (5' 11 ) 05/31/2023 11:43 AM AIRCRAFT LAY OUT WORKER Body Mass Index 23.91 05/31/2023 11:43 AM AIRCRAFT LAY OUT WORKER Plan of Treatment Health Maintenance Due Date Last Done Comments Colon Cancer Screening-Colonoscopy 1960 Depression Screening 1960 Hepatitis C Screening 1960 Prostate Cancer Screening-PSA 1959 DTaP/Tdap/Td Vaccine (1 - Tdap) 07/16/1970 Hepatitis B Screening 07/16/1977 Regular Well Visit/Exam 18-64 07/16/1977 Zoster Vaccine (1 of 2) 07/16/2009 Covid-19 Vaccine (3 - 2023-2 5 season) 2023 12/13/2020, 11/07/2020 Influenza Vaccine (Season Ended) 2024 Pneumococcal vaccine <65 Aged Out No longer [...] strategies and compensatory methods as needed Insurance [facility] OTHER Address: [address] [address] MEDICARE [facility] MEDICARE Care Teams Psychiatric Arnp Relationship Specialty Start Date End Date Israel Lund DO PCP - General Internal Medicine 05/08/23
== END 2024-07-02 11:36 | disposition home or self-care (01) ==
PROVIDERS: Emergency Provider Nurse Practitioner Family; PCP Internal Medicine
DX: J01.90 Acute sinusitis, unspecified (principal); R21 Rash and other nonspecific skin eruption; E78.5 Hyperlipidemia, unspecified; M48.00 Spinal stenosis, site unspecified; M19.011 Primary osteoarthritis, right shoulder; Z85.46 Personal history of malignant neoplasm of prostate; Z90.79 Acquired absence of other genital organ(s)
CPT/HCPCS: 99213; G0463

== ENCOUNTER 2024-11-18 14:40 | Outpatient (CLI) | payer MEDICARE, SELFPAY ==
--- NOTE | ~2024-11-18 | XR_ITS ---
EXAMINATION: XR lumbar spine min 4V DATE: 11/18/2024 15:02 INDICATION: Radiculopathy, lumbar region TECHNIQUE: 4 images of the lumbar spine were obtained. COMPARISON: 11/03/2020 FINDINGS: There is bowel gas and stool projecting over the pelvis which limits evaluation. Minimal dextro convex curvature of the lumbar spine. Grade 1 anterolisthesis of L3 on L4 which is grossly unchanged with flexion or extension. Degenerative change throughout the lumbar facet joints. Mild intervertebral disc space narrowing at the L3-4, L4-L5 levels. Severe intervertebral disc space narrowing at the L5-S1 level. No compression fracture in the lumbar spine. IMPRESSION: 1. No compression fracture in the lumbar spine. 2. Grade 1 anterolisthesis of L3 on L4, unchanged. 3. Multilevel degenerative change in the lumbar spine which has slightly worsened as compared to the study from 2020. If symptoms persist or worsen, consider an MRI of the lumbar spine for further assessment. Reviewed, dictated and finalized at location Q. IMPRESSION: 1. No compression fracture in the lumbar spine. 2. Grade 1 anterolisthesis of L3 on L4, unchanged. 3. Multilevel degenerative change in the lumbar spine which has slightly worsen ed as compared to the study from 2020. If symptoms persist or worsen, consider an MRI of the lumbar spine for further assessment.
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
== END 2024-11-18 14:41 | disposition home or self-care (01) ==
PROVIDERS: PCP Internal Medicine; Visit Provider Neurological Surgery
DX: M43.16 Spondylolisthesis, lumbar region (principal); M47.816 Spondylosis without myelopathy or radiculopathy, lumbar region
CPT/HCPCS: 72110

== ENCOUNTER 2024-12-01 09:34 | Outpatient (CLI) | payer MEDICARE, SELFPAY ==
--- OUTSIDE RECORDS SUMMARY | 2024-12-01 09:53 | XMS_ITS | Clinical Summary ---
Author Organization [facility] Address [address] [place] [address] Care Team Providers Care Pantry Attendant Name Role Phone Israel Lund DO Primary Care Provider [phone] Allergies Active Allergy Reactions Criticality Noted Date [...] Comments Blood Pressure 138/88 05/31/2023 1:35 PM ORACLE APPLICATION CONSULTANT Pulse 75 05/31/2023 1:35 PM ORACLE APPLICATION CONSULTANT Temperature 36.5 C (97.7 F) 05/31/2023 11:43 AM ORACLE APPLICATION CONSULTANT Respiratory Rate 16 05/31/2023 1:35 PM ORACLE APPLICATION CONSULTANT Oxygen Saturation 99% 05/31/2023 1:35 PM ORACLE APPLICATION CONSULTANT Inhaled Oxygen Concentration - - Weight 77.7 kg (171 lb 6.4 oz) 05/31/2023 11:43 AM ORACLE APPLICATION CONSULTANT Height 180.3 cm (5' 11) 05/31/2023 11:43 AM ORACLE APPLICATION CONSULTANT Body Mass Index 23.91 05/31/2023 11:43 AM ORACLE APPLICATION CONSULTANT Plan of Treatment Health Maintenance Due Date [...] PELVIS W CONTRAST ED 03/14/2021 11:01 AM ORACLE APPLICATION CONSULTANT from Last 3 Months or Most Recently Relevant to Health Maintenance Results * CT Chest Abdomen Pelvis W Contrast (03/14/2021 11:01 AM ORACLE APPLICATION CONSULTANT) Anatomical Region Laterality Modality Body N/A Computed Tomogra phy 03/14/2021 11:1 0 AM ORACLE APPLICATION CONSULTANT Narrative 03/14/2021 11:24 AM ORACLE APPLICATION CONSULTANT EXAM DESCRIPTION: CT CHEST ABDOMEN PELVIS W [...] Chandler Roblero M.D. BC: ARSLAN Report ID: [id number] Reading Location: [id number] Procedure Note Chandler Roblero MD - 12/20/2021 [...] Chandler Roblero M.D. BC: ARSLAN Report ID: [id number] Reading Location: [place] [id number] Justino Galicia MD IMG CT PROCEDURES F inal Result from Last 3 Months or Most Recently Relevant to Health Maintenance Insurance [facility] MEDICARE [facility] Address: [address] [place] [phone] [place]WA [facility] MEDICARE Care Teams Pantry Attendant Relationship Specialty Start Date End Date Israel Lund DO PCP - General Internal Medicine 05/08/23
[2024-12-01 09:56] LABS: Hematocrit 45.7 % (42.0-52.0); Hemoglobin 15.4 g/dL (14.0-18.0); Immature Granulocyte Percent A 0.2 % (0-0.5); Lymphocytes Absolute Auto 1.38 K/mm3 (0.9-3.2); Mean Corpuscular HGB Conc 33.7 g/dl (32-36); Mean Corpuscular Hemoglobin 30.2 pg (26-34); Mean Corpuscular Volume 89.6 fl (80-100); Nucleated Red Blood Cells Absolute Auto 0.000 K/mm3 (0.0-0.012); Nucleated Red Blood Cells Perc 0.0 % (0.0-0.2); Platelet Count Result 266 k/mm3 (150-375); Red Blood Count 5.10 M/mm3 (4.6-6.20); White Blood Count 4.1 K/mm3 (4.5-10.0)
[2024-12-01 10:10] LABS: Alanine Aminotransferase 22 U/L (6-50); Albumin Level 4.6 g/dL (3.5-5.1); Alkaline Phosphatase 84 U/L (38-126); Anion Gap 8 mmol/L (4-12); Aspartate Amino Transferase 32 U/L (17-59); Bilirubin,Total 0.8 mg/dL (0.2-1.3); Blood Urea Nitrogen 10 mg/dL (9-20); Calcium 9.2 mg/dL (8.4-10.2); Carbon Dioxide 28 mmol/L (22-30); Chloride 100 mmol/L (98-107); Cholesterol 311 mg/dL (0-200); Estimated Glomerular Filt Rate > 60; Glucose 112 mg/dL (65-110); HDL Direct 65 mg/dL; Potassium 4.2 mmol/L (3.4-5.0); Sodium 136 mmol/L (137-145); Total Protein 7.6 g/dL (6.3-8.2); Triglycerides 117 mg/dL (<150)
[2024-12-01 10:46] LABS: Prostate Specific Antigen < 0.1 ng/mL (< OR = 4.0)
[2024-12-01 11:47] LABS: Hemoglobin A1C 5.6 % (<5.7)
== END 2024-12-01 09:35 | disposition home or self-care (01) ==
PROVIDERS: PCP Internal Medicine; Visit Provider Nurse Practitioner
DX: E78.2 Mixed hyperlipidemia (principal); Z13.29 Encounter for screening for other suspected endocrine disorder; C61 Malignant neoplasm of prostate; R73.01 Impaired fasting glucose
CPT/HCPCS: 36415; 80053; 80061; 83036; 84153; 85025

== ENCOUNTER 2025-01-20 09:40 | Outpatient (CLI) | payer MEDICARE, SELFPAY ==
--- OUTSIDE RECORDS SUMMARY | 2025-01-20 10:44 | XMS_ITS | Clinical Summary ---
Author Organization [facility] Address [address] [place] [id number] Care Team Providers Care Beverage Steward Name Role Phone Kevon Israel Valerio Primary Care Provider Allergies Active Allergy Reactions Criticality Noted Date [...] Comments Blood Pressure 138/88 05/31/2023 1:35 PM CERAMIC CAPACITOR PROCESSOR Pulse 75 05/31/2023 1:35 PM CERAMIC CAPACITOR PROCESSOR Temperature 36.5 C (97.7 F) 05/31/2023 11:43 AM CERAMIC CAPACITOR PROCESSOR Respiratory Rate 16 05/31/2023 1:35 PM CERAMIC CAPACITOR PROCESSOR Oxygen Saturation 99% 05/31/2023 1:35 PM CERAMIC CAPACITOR PROCESSOR Inhaled Oxygen Concentration - - Weight 77.7 kg (171 lb 6.4 oz) 05/31/2023 11:43 AM CERAMIC CAPACITOR PROCESSOR Height 180.3 cm (5' 11) 05/31/2023 11:43 AM CERAMIC CAPACITOR PROCESSOR Body Mass Index 23.91 05/31/2023 11:43 AM CERAMIC CAPACITOR PROCESSOR Plan of Treatment Health Maintenance Due Date Last Done Comments Colon Cancer Screening-Colonoscopy 1959 Depression Screening 1959 Fall Risk Assessment 1960 Hepatitis C Screening 1960 Prostate Cancer Screening-PSA 1959 DTaP/Tdap/Td Vaccine (1 - Tdap) 07/16/1970 Hepatitis B Screening 07/16/1977 Pneumococcal vaccine 65+ (1 of 1 - PCV) 07/16/2009 Zoster Vaccine (1 of 2) 07/16/2009 Abdominal Aortic Aneurysm (AAA) Screen 07/16/2024 Well Visit 65+ 07/16/2024 Covid-19 Vaccine ( - season) 2024, 11/07/2020 Influenza Vaccine (#1) 2024 Goals Goal Patient [...] PELVIS W CONTRAST ED 03/14/2021 11:01 AM CERAMIC CAPACITOR PROCESSOR from Last 3 Months or Most Recently Relevant to Health Maintenance Results * CT Chest Abdomen Pelvis W Contrast (03/14/2021 11:01 AM CERAMIC CAPACITOR PROCESSOR) Anatomical Region Laterality Modality Body N/A Computed Tomogra phy 03/14/2021 11:1 0 AM CERAMIC CAPACITOR PROCESSOR Narrative 03/14/2021 11:24 AM CERAMIC CAPACITOR PROCESSOR EXAM DESCRIPTION: CT CHEST ABDOMEN PELVIS W [...] Chandler Roblero M.D. BC: ARSLAN Report ID: [id number] Reading Location: [id number] Procedure Note Chandler Roblero MD - 03/14/2021 EXAM DESCRIPTION: CT CHEST ABDOMEN PELVIS W [...] Chandler Roblero M.D. BC: ARSLAN Report ID: [id number] Reading Location: [place] [address] Justino Galicia MD IMG CT PROCEDURES F inal Result from Last 3 Months or Most Recently Relevant to Health Maintenance Insurance [facility] MEDICARE [facility] Address: [address] [place] [phone] [employer] [facility] MEDICARE Care Teams Beverage Steward Relationship Specialty Start Date End Date Israel Lund DO PCP - General Internal Medicine 05/08/23
--- NOTE | 2025-01-20 11:00 | ECG_ITS ---
Test Date: 2025-01-20 11:18:17 Measurements Intervals [place] Rate: 59 P: 54 [place]: 188 QRS: 10 QRSD: 84 T: 46 QT: 398 QTc: 395 Interpretive Statements SINUS BRADYCARDIA POSSIBLE RIGHT VENTRICULAR CONDUCTION DELAY BASELINE ARTIFACT- I, II, III, AVR, AVL, AVF BORDERLINE ECG No previous ECG available for comparison Electronically Signed On 01-20-2025 11:40:15 CDT by Andi Lu D.O.
[2025-01-20 12:25] LABS: Hematocrit 47.0 % (42.0-52.0); Hemoglobin 15.5 g/dL (14.0-18.0); Mean Corpuscular HGB Conc 33.0 g/dl (32-36); Mean Corpuscular Hemoglobin 29.9 pg (26-34); Mean Corpuscular Volume 90.7 fl (80-100); Platelet Count Result 277 k/mm3 (150-375); Red Blood Count 5.18 M/mm3 (4.6-6.20); White Blood Count 6.0 K/mm3 (4.5-10.0)
[2025-01-20 12:27] LABS: Add Urine Microscopic? NO; Appearance Urine Clear (Clear); Glucose Urine UA Negative (Negative); Leukocyte Esterase Ur Negative LEU/UL (Negative); Nitrate Urine Negative (Negative); Specific Grav Ur 1.005 (1.001-1.035)
[2025-01-20 12:39] LABS: INR 1.0; Partial Thromboplastin Time 28.1 Seconds (22.3-36.8); Prothrombin Time 13.6 Seconds (11.1-14.7)
[2025-01-20 12:54] LABS: Anion Gap 8 mmol/L (4-12); Blood Urea Nitrogen 15 mg/dL (9-20); Calcium 9.3 mg/dL (8.4-10.2); Carbon Dioxide 30 mmol/L (22-30); Chloride 101 mmol/L (98-107); Estimated Glomerular Filt Rate > 60; Glucose 101 mg/dL (65-110); Sodium 139 mmol/L (137-145)
[2025-01-20 13:05] LABS: Potassium 3.8 mmol/L (3.4-5.0)
== END 2025-01-20 09:41 | disposition home or self-care (01) ==
LOC: ANHSURGERY 09:43
PROVIDERS: PCP Nurse Practitioner; Visit Provider Neurological Surgery
DX: R94.31 Abnormal electrocardiogram [ECG] [EKG] (principal); M48.062 Spinal stenosis, lumbar region with neurogenic claudication; E78.00 Pure hypercholesterolemia, unspecified
CPT/HCPCS: 36415; 80048; 81003; 85027; 85610; 85730; 93005

== ENCOUNTER 2025-02-03 00:22 | Day surgery (SDC) | payer MEDICARE, SELFPAY ==
[2025-01-20 10:22] VITALS: BP 125/85; PULSE 60; RESP 16; TEMP 36.3; O2SAT 97; BMI 25.6
--- NOTE | 2025-01-20 10:42 | PC.NURSE ---
[facility] has started construction of its new state of the art ER which will open Spring 2026. With this, we anticipate parking may be a challenge for some our surgical patients and families. Parking spaces are limited but are available for all Surgical, obstetrics, and ER patients sharing this lot. If you arrive and find you are having a hard time finding a parking space, please note that we understand the challenges, please drive around the hospital and park near Hospital Entrance 1. When you enter this entrance, you can ask a volunteer to direct or take you back to the surgical waiting area to check in. We appreciate everyone?s understanding of these expected challenges while we build for your future. Report to the Outpatient Waiting Room, entrance under the green pavilion located off [address], at time __12:00PM___ on date __02/03/25___. Planned Procedure Time: ___2:00PM___.? Time changes happen often and if your time is changed the preop area will call you the afternoon before. - You and your visitor will be asked to self-screen and do not enter if you have any COVID symptoms. Please call surgeon if you need to reschedule. - A mask is optional within the hospital at this time. Patients may have clear liquids (water, carbonated beverages, clear teas, apple juice) until 3 hours prior to surgery (11:00AM) with a maximum of 20 ounces. - No food from midnight until time of surgery and no smoking, or chewing tobacco (or any form of nicotine). No chewing gum, candy or mints. Take only the following medications with a SIP of water on the morning of surgery: ___ALBUTEROL INHALER & DIAZEPAM NEEDED DO NOT STOP ANY OF YOUR OTHER PRESCRIPTION MEDICATIONS PRIOR TO SURGERY EXCEPT THE FOLLOWING Medications to discontinue per physician ___HOLD ALL NSAIDS(ALEVE) & FISH OIL 7 DAYS PRE-OP PER DR MOURA Date to take last dose___01/26/25 Please no make-up, nail romanian, hairspray, perfume, deodorant, or body powder the day of surgery.? No jewelry (including any body piercings) or valuables the day of surgery, leave them at home.? Please take a shower or bath the night before, or the morning of, surgery with an antibacterial soap.? Wear comfortable, loose fitting clothing.? - Jewelry must be removed prior to entering the operating room.? Rings and piercings that are not removed may be cut off. - The hospital will not accept responsibility for valuables.? - Please leave all valuables, including medications, at home the day of surgery. If you are going home after surgery, a licensed frontload driver must drive you home.? - NO public transportation without another adult if you receive anesthesia. - We recommend that an adult stay with you for 24 hours following discharge. - We also recommend that you do not drive, make important decision, drink alcoholic beverages, or take any drugs that were not prescribed by your health care provider for at least 24 hours after your discharge time. Follow any additional instructions given to you from your surgeon. Telephone instructions given to ____PATIENT and asked if any additional questions and then verbalized understanding. Patient advised to call surgeon office or pre surgery nurse liaison [phone] if any additional questions.
[2025-02-03] VITALS (8 sets, daily range): BP systolic 123–162; BP diastolic 78–98; PULSE 57–81; RESP 12–20; TEMP 36.1–36.7; O2SAT 98–100; BMI 25.4
--- NOTE | ~2025-02-03 | XR_ITS ---
EXAMINATION: XR fluoroscopy no charge DATE: 02/03/2025 12:43 INDICATION: Left L3-L4 hemilaminectomy TECHNIQUE: Single lateral fluoroscopic image of the lower lumbar spine was obtained procedure performed by Dr. Oliveira. Radiologist was not present for the imaging or procedure. The amount of fluoroscopy time used during this procedure was 0.1 minutes. The dose area product was 1.074 Gycm^2. COMPARISON: None. FINDINGS: Single provided image demonstrates a metallic probe projecting over the inferior articular process of L3. 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 IMPRESSION: 1. Fluoroscopy utilized during neurosurgical procedure at the lumbar spine. See procedure note for further detail. Reviewed, dictated and finalized at location A. ETING RESEARCH ANALYST
--- OUTSIDE RECORDS SUMMARY | 2025-02-03 00:25 | XMS_ITS | Clinical Summary ---
Author Organization [facility] Address [address] [place] [phone] Care Team Providers Care Cadastral Engineer Name Role Phone Israel Lund DO Primary Care Provider [phone]- [phone] Allergies Active Allergy Reactions Criticality Noted Date [...] Comments Blood Pressure 138/88 05/31/2023 1:35 PM ART CLASS MODEL Pulse 75 05/31/2023 1:35 PM ART CLASS MODEL Temperature 36.5 C (97.7 F) 05/31/2023 11:43 AM ART CLASS MODEL Respiratory Rate 16 05/31/2023 1:35 PM ART CLASS MODEL Oxygen Saturation 99% 05/31/2023 1:35 PM ART CLASS MODEL Inhaled Oxygen Concentration - - Weight 77.7 kg (171 lb 6.4 oz) 05/31/2023 11:43 AM ART CLASS MODEL Height 180.3 cm (5' 11) 05/31/2023 11:43 AM ART CLASS MODEL Body Mass Index 23.91 05/31/2023 11:43 AM ART CLASS MODEL Plan of Treatment Health Maintenance Due Date [...] Visit 65+ 07/16/2024 Covid-19 Vaccine ( - 2024- season) 2024, 11/07/2020 Influenza Vaccine (#1) 2024 [...] PELVIS W CONTRAST ED 03/14/2021 11:01 AM ART CLASS MODEL from Last 3 Months or Most Recently Relevant to Health Maintenance Results * CT Chest Abdomen Pelvis W Contrast (03/14/2021 11:01 AM ART CLASS MODEL) Anatomical Region Laterality Modality Body N/A Computed Tomogra phy 03/14/2021 11:1 0 AM ART CLASS MODEL Narrative 03/14/2021 11:24 AM ART CLASS MODEL EXAM DESCRIPTION: CT CHEST ABDOMEN PELVIS W [...] Chandler Roblero M.D. BC: ARSLAN Report ID: [id number] Reading Location: [id number] Procedure Note Chandler Roblero MD - 03/14/2021 [...] Chandler Roblero M.D. BC: ARSLAN Report ID: [id number] Reading Location: [place] [address] Justino Galicia MD IMG CT PROCEDURES F inal Result from Last 3 Months or Most Recently Relevant to Health Maintenance Insurance [facility] MEDICARE [facility] Address: [address] [place] [phone] [employer] [facility] MEDICARE Care Teams Cadastral Engineer Relationship Specialty Start Date End Date Israel Lund DO PCP - General Internal Medicine 05/08/23
--- OUTSIDE RECORDS SUMMARY | 2025-02-03 00:25 | XMS_ITS | Clinical Summary ---
Author Organization [facility] Address [address] [place] [address] Care Team Providers Care Respite Worker Name Role Phone Israel Lund DO Primary Care Provider [phone] Social History Tobacco Use Types Packs/Day Years Used Date Smoking Tobacco: Never Assessed Sex and Gender Information Value Date Recorded Sex Assigned at Male 10/29/2024 3:23 PM CDT Legal Sex Male 4:44 PM CDT Gender Identity Not on file Sexual Orientation Not on file Plan of Treatment Health Maintenance Due Date Last Done Comments Colorectal Cancer Screening Colonoscopy (10 Years) 1960 Hepatitis C 07/16/1977 DTaP, Tdap and Td Vaccines ( 1 - Tdap) 07/16/1978 Pneumococcal Vaccine: 50+ Years (1 of 1 - PCV) 07/16/2009 Zoster Vaccines (1 of 2) 07/16/2009 COVID-19 Vaccine (3 - 2024-2 6 season) 2024 12/13/2020, 11/07/2020 Influenza Adult (#1) 2024 RSV Immunization or 60+ Years (1 - 1-dose 75+ series) 07/16/2034 Hepatitis A Vaccines Aged Out No long er eligible based on patient's age to complete this topic Meningococcal B Vaccine Aged Out No l onger eligible based on patient's age to complete this topic Meningococcal Vaccine Aged Out No shawn arelis eligible based on patient's age to complete this topic RSV Immunizations Under 20 Months Aged Out No longer eligible b ased on patient's age to complete this topic Insurance MEDICARE [facility] Care Teams Respite Worker Relationship Specialty Start Date End Date Israel Lund DO [address] [place] [address] PCP - General INTERNAL MEDICINE 10/29/24
[2025-02-03] MEDS: LACTATED RINGERS 1,000 ML 30 ML IV CONT (09:00)
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
--- NOTE | 2025-02-03 10:33 | WPDHPUPDATE1 ---
History and Physical Update Update Date/Time: 02/03/25 10:33 History and Physical has been reviewed, including an updated exam of the patient. There are NO changes in the patient's condition. Risks, benefits, and alternatives have been discussed and questions answered. Patient agrees to proceed with procedure.
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
[2025-02-03] MEDS: ceFAZolin 2 GM in SODIUM CHLORIDE 0.9% IV 50 ML 100 ML IVPB (11:02)
[2025-02-03] MEDS: LIDO 1%/EPINEPHRINE 1:100,000 20 ML VIAL INFILTRATE (11:58)
[2025-02-03] MEDS: fentaNYL CITRATE INJ (*CRX) 100 MCG/2 ML VIAL 25 MCG IV PUSH ×4 (12:50→13:03)
[2025-02-03] MEDS: ONDANSETRON INJ 4 MG/2 ML VIAL IV PUSH (12:53)
[2025-02-03] MEDS: oxyCODONE HCL (*CRX) 5 MG TAB IR PO (13:53)
--- NOTE | 2025-02-05 09:59 | P.OP_ITS ---
Procedure Note - Detailed Date of Procedure 02/05/25 Pre-op Diagnosis L3-4 stenosis Post-op Diagnosis Same Procedure Performed Left L3-4 hemilaminectomy Surgeon Ariel Oliveira MD Anesthesia General Description of Procedure the patient was brought to the operating room in the supine position, was sedated, intubated placed under general anesthesia in routine fashion. He was then turned into the prone position on a Geronimo frame. The operation on his back was examined, marked for incision, prepped and draped in routine sterile fashion. Incision was marked over the L3 and L4 spinous processes in the midline. This area was injected with 0.5% lidocaine with 1 200,000 epinephrine. Intravenous antibiotics given prior to incision. Incision was made with a 10 blade scalpel. A subperiosteal dissection of the muscle and soft tissue away from spinous process and lamina on the left at L3-4 was performed with a subperiosteal elevator and Bovie cautery. A verifying x- rays obtained to verify level of operation. On the left at L3-4 Midas-Michael drill was used to perform a hemilaminectomy and medial facetectomy. Under microscopy the yellow ligament was lifted removed piecemeal using Kerrison punches. This included overgrown ligament in the lateral recess. A plane was dissected and Kerrison punches were used to remove additional bone and ligament laterally until the pedicle could be palpated and an instrument could be placed into the foramen to confirm lack of compression. Contralaterally, then, a plane was dissected using a curved curette and Kerrison punches were used to remove bone and ligament on the contralateral side in like fashion. The spinous process and lamina were undercut using a Midas Michael drill to allow visualization across the canal. These maneuvers were performed until a dental instrument could be used to palpate the pedicle and be placed above and below the nerve root out the foramen to confirm lack of compression. The wound was then copiously irrigated with bacitracin irrigation all bleeding stopped with bipolar and Bovie cautery and Gelfoam thrombin powder. The wound was then closed in layered fashion with 2-0 Vicryl interrupted sutures in the lumbodorsal fascia and Amrit's layer. 3-0 Vicryl buried interrupted sutures were placed in the dermis and the skin was closed with a running 4-0 Monocryl subcuticular stitch and dressed with Dermabond. The patient was allowed to wake up in the operating room and was taken to the recovery room in stable condition. There were no immediate complications of this operation. All counts reported correct at the end of the case. Blood loss was 25 cc. The patient was neurologically at his baseline postoperatively. CPT codes: 36680, 98200, 46483 Estimated Blood Loss 25 Complications No immediate complications Condition Stable Disposition PACU [facility] Billing Surgery - Charge Forward: Surgery Billing
== END 2025-02-03 14:30 | disposition home or self-care (01) ==
PROVIDERS: PCP Nurse Practitioner; Visit Provider Neurological Surgery
PROC: (CPT 63005; principal; 2025-02-03 10:30)
DX: M48.062 Spinal stenosis, lumbar region with neurogenic claudication (principal); E78.5 Hyperlipidemia, unspecified; N52.9 Male erectile dysfunction, unspecified; M19.011 Primary osteoarthritis, right shoulder; R53.83 Other fatigue; F40.240 Claustrophobia; G47.00 Insomnia, unspecified; F95.2 Tourette's disorder; Z79.51 Long term (current) use of inhaled steroids; Z79.1 Long term (current) use of non-steroidal anti-inflammatories (NSAID); Z98.890 Other specified postprocedural states; Z85.46 Personal history of malignant neoplasm of prostate; Z80.1 Family history of malignant neoplasm of trachea, bronchus and lung
CPT/HCPCS: 63047; 63048; 99199; J0690; A9270; J1100; J1200; J2003; J2004; J2250; J2405; J2704; J3010; J7120